=== PATIENT | female | born 1960 | race Caucasian/White ===

== ENCOUNTER 2022-04-05 18:35 | Inpatient (IN) ==
--- NOTE | 2022-04-05 19:10 | Emergency Department Note ---
Impression & Plan Retrosternal chest pain, Nausea, vomiting, and diarrhea, Heart palpitations, History of cardiac radiofrequency ablation ED Provider Note INFORMANT: Patient ED PROVIDER(S): Billy Chaudhry MD CHIEF COMPLAINT: Chest pain PLAN: Disposition: Admitted Condition: Good Outpatient prescription management: none Referral: None MEDICAL DECISION MAKING: Patient presents emerged department complaining of chest pain. She also had some abdominal pain. Work-up was initiated. ECG was unremarkable. The patient's chest x-ray was negative for acute process. Her D-dimer and troponin were negative. Patient did have elevation of her LFTs. This was concerning for a possible GI source. There was still concerns about cardiac issues given her family history and presentation. The patient was having more pain and was treated with Dilaudid and Zofran. She underwent CT imaging and there was findings consistent with her prior cholecystectomy but the patient did have a dilated common bile duct. She will need further management in the hospital. [facility] Case was discussed and diagnostics were reviewed. Evaluated patient in the ER and admitted her for further management After review of the information above and other included data, I feel the patient requires further management in the hospital. Triage Nursing notes reviewed and agree them. Vital Signs: reviewed and remarkable for no significant abnormalities Prior /Outside records reviewed: none Differential diagnosis: Cardiac ischemia, aortic dissection, pulmonary embolism, pneumothorax, pneumonia, pericarditis, myocarditis, esophageal rupture, GERD, cholecystitis, pancreatitis, musculoskeletal, as well as other pathologies. Diagnostics, as interpreted by me: EC Lead ECG performed and revealed Normal sinus rhythm at 73, normal Bennett, QRS normal. No elevation or depression. No PACs or PVCs Cardiac Monitoring: Cardiac monitoring ordered by me: The patient was placed on continuous cardiac monitoring and observed. It revealed a normal sinus rhythm at 68 beats per minute without ectopy or evidence of dysrhythmia. Medical decision rules: none Imaging studies: Chest x-ray. Findings: A chest x-ray was performed and revealed no pneumothorax, effusion, infiltrate, pulmonary edema, free air under the diaphragm, or wide mediastinum. Impression: No acute disease. CT imaging reveals common bile duct. Radiology noted that there was also a cystic lesion in the pelvis. I refer you to the EMR for further details. HPI: The patient is a 61year old female who presents to the Emergency Room with complaints of chest pain, retrosternal. This started this evening and is persistent and fluctuating. The patient also notes the following associated symptoms, nausea earlier, vomiting x3, and loose stool. Patient also noted some epigastric abdominal pain. Some of the pain does radiate to her back. She notes feeling palpitations and was concerned as she has a history of A. fib. She had chest pain similar to this with A. fib in the past. Nursing noted that when she came in her heart rate seem to fluctuate some and there was some concern that she had a brief run of atrial fibrillation on the monitor after ECG showed sinus rhythm. The patient has found no relieving factors. Current pain is rated as 4/10. Patient is a smoker. Notes strong family history of cardiac disease and cardiomyopathy. Patient's sister at the age of 47 from cardiac disease. Patient's other sister has a heart transplant. Patient also has a family history of MTHFR. Pt denies LOC, headache, fevers, chills, diaphoresis, visual changes, neck pain,breathing difficulties, melena, hematochezia, urinary symptoms, numbness, weakness, lymphadenopathy, rash, or other complaints. PAST MEDICAL HISTORY: See Below, atrial fibrillation PAST SURGICAL HISTORY: See Below, cardiac ablation SOCIAL HISTORY: See Below, smoker. . HOME MEDICATIONS: See Below ALLERGIES: See Below VITALS: See Below PHYSICAL EXAMINATION: GENERAL: Awake, alert, nontoxic-appearing, in no distress HENT: Normocephalic, atraumatic. Oropharynx unremarkable. EYES: Normal conjunctiva. Sclera non-icteric. NECK: Inspection normal. Non-tender. Supple. No nuchal rigidity. FROM. No masses. RESPIRATORY: Clear to auscultation. No wheezes. No rales. Normal respiratory effort. CARDIAC: Normal rate. Normal rhythm. No murmurs. No rubs. Extremities warm and well perfused. Pulses equal. No JVD. GI: Soft, non-distended. Mild epigastric tenderness to palpation. No rebound or guarding. No masses. RECTAL: Deferred. MUSCULOSKELETAL: Atraumatic. Chest examination reveals no tenderness. The back is symmetrical on inspection without obvious abnormality. There is no CVA tenderness to palpation. No joint edema. LOWER EXTREMITIES: Calves are equal size bilaterally and non-tender. No edema. No discoloration. NEURO: Normal sensorium. No sensory or motor deficits noted. SKIN: No rash or jaundice noted. Past Med/Surg History Social History Smoking Status: Former smoker Allergies Allergies Allergy/AdvReac Type Severity Reaction Status Date / Time lisinopril Allergy Mild . Verified 04/05/22 21:21 erythromycin base Allergy Unknown Verified 12/05/12 11:30 ketorolac Allergy Unknown Verified 12/05/12 11:30 Home Meds Home Medications Medication Instructions Recorded Confirmed albuterol sulfate 90 mcg/actuation 2 puff inhalation QID PRN 04/05/22 04/05/22 aerosol inhaler (ProAir HFA) Shortness Of Breath Or Wheezing alprazolam 0.25 mg tablet 0.25 mg PO QID PRN Anxiety 04/05/22 04/05/22 aspirin 81 mg tablet,delayed 81 mg PO DAILY 04/05/22 04/05/22 release diltiazem HCl 240 mg 240 mg PO DAILY 04/05/22 04/05/22 capsule,extended release 24 hr fluoxetine 40 mg capsule 40 mg PO DAILY 04/05/22 04/05/22 hydrochlorothiazide 25 mg tablet 25 mg PO DAILY 04/05/22 04/05/22 loratadine 10 mg tablet 10 mg PO DAILY 04/05/22 04/05/22 losartan 100 mg tablet 100 mg PO DAILY 04/05/22 04/05/22 magnesium oxide 400 mg PO DAILY 04/05/22 04/05/22 montelukast 10 mg tablet 10 mg PO QAM 04/05/22 04/05/22 multivitamin 1 tab PO DAILY 04/05/22 04/05/22 naproxen sodium 220 mg tablet 440 mg PO .Q4H/UD 04/05/22 04/05/22 (Aleve) omeprazole 20 mg capsule,delayed 20 mg PO BID 04/05/22 04/05/22 release potassium chloride 10 mEq 20 meq PO QAM 04/05/22 04/05/22 tablet,extended release (Klor-Con) rosuvastatin 20 mg tablet 20 mg PO DAILY 04/05/22 04/05/22 Results & Data (ED) Vital Signs Vital Signs - 24 hr 04/05/22 18:37 04/05/22 18:37 04/05/22 18:37 Temperature 37 C Temperature Source Oral Pulse Rate 70 98 H Pulse Rate [Finger] Pulse Rate from SpO2 Sensor Pulse Rhythm Regular Respiratory Rate 18 20 Respiratory Effort / Characteristics Non-Labored Respiratory Depth Normal Blood Pressure 128/70 Blood Pressure [Right Arm] Blood Pressure Mean 89 Blood Pressure Mean [Right Arm] Pulse Oximetry 98 98 98 Oxygen Delivery Method Room Air Room Air Room Air Sepsis Recent Fever Within 48 Hours No Sepsis New/Unexplained Change in Mental Status No Sepsis Action Taken by Nursing No Action Required 04/05/22 18:50 04/05/22 19:00 04/05/22 19:00 Temperature Temperature Source Pulse Rate 71 80 Pulse Rate [Finger] Pulse Rate from SpO2 Sensor 71 79 Pulse Rhythm Respiratory Rate 20 17 Respiratory Effort / Characteristics Respiratory Depth Blood Pressure 108/70 Blood Pressure [Right Arm] Blood Pressure Mean 82 Blood Pressure Mean [Right Arm] Pulse Oximetry 95 97 Oxygen Delivery Method Sepsis Recent Fever Within 48 Hours Sepsis New/Unexplained Change in Mental Status Sepsis Action Taken by Nursing 04/05/22 19:10 04/05/22 19:20 04/05/22 19:30 Temperature Temperature Source Pulse Rate 68 70 Pulse Rate [Finger] Pulse Rate from SpO2 Sensor 68 69 Pulse Rhythm Respiratory Rate 13 20 Respiratory Effort / Characteristics Respiratory Depth Blood Pressure 118/70 Blood Pressure [Right Arm] Blood Pressure Mean 86 Blood Pressure Mean [Right Arm] Pulse Oximetry 97 96 Oxygen Delivery Method Sepsis Recent Fever Within 48 Hours Sepsis New/Unexplained Change in Mental Status Sepsis Action Taken by Nursing 04/05/22 19:30 04/05/22 19:40 04/05/22 19:58 Temperature Temperature Source Pulse Rate 68 66 Pulse Rate [Finger] Pulse Rate from SpO2 Sensor 69 66 Pulse Rhythm Respiratory Rate 14 17 Respiratory Effort / Characteristics Respiratory Depth Blood Pressure 107/59 L Blood Pressure [Right Arm] Blood Pressure Mean 75 Blood Pressure Mean [Right Arm] Pulse Oximetry 97 97 Oxygen Delivery Method Sepsis Recent Fever Within 48 Hours Sepsis New/Unexplained Change in Mental Status Sepsis Action Taken by Nursing 04/05/22 19:58 04/05/22 20:00 04/05/22 20:00 Temperature Temperature Source Pulse Rate 67 65 Pulse Rate [Finger] Pulse Rate from SpO2 Sensor Pulse Rhythm Respiratory Rate 12 10 L Respiratory Effort / Characteristics Respiratory Depth Blood Pressure 99/58 L Blood Pressure [Right Arm] Blood Pressure Mean 71 Blood Pressure Mean [Right Arm] Pulse Oximetry Oxygen Delivery Method Sepsis Recent Fever Within 48 Hours Sepsis New/Unexplained Change in Mental Status Sepsis Action Taken by Nursing 04/05/22 20:10 04/05/22 20:20 04/05/22 20:47 Temperature Temperature Source Pulse Rate 64 69 76 Pulse Rate [Finger] Pulse Rate from SpO2 Sensor 65 68 Pulse Rhythm Respiratory Rate 15 12 20 Respiratory Effort / Characteristics Respiratory Depth Blood Pressure Blood Pressure [Right Arm] Blood Pressure Mean Blood Pressure Mean [Right Arm] Pulse Oximetry 95 95 Oxygen Delivery Method Sepsis Recent Fever Within 48 Hours Sepsis New/Unexplained Change in Mental Status Sepsis Action Taken by Nursing 04/05/22 20:50 04/05/22 21:02 04/05/22 21:02 Temperature Temperature Source Pulse Rate 70 67 Pulse Rate [Finger] Pulse Rate from SpO2 Sensor 71 68 Pulse Rhythm Respiratory Rate 14 17 Respiratory Effort / Characteristics Respiratory Depth Blood Pressure 120/68 Blood Pressure [Right Arm] Blood Pressure Mean 85 Blood Pressure Mean [Right Arm] Pulse Oximetry 97 96 Oxygen Delivery Method Sepsis Recent Fever Within 48 Hours Sepsis New/Unexplained Change in Mental Status Sepsis Action Taken by Nursing 04/05/22 21:10 04/05/22 21:20 04/05/22 22:00 Temperature Temperature Source Pulse Rate 74 68 Pulse Rate [Finger] 84 Pulse Rate from SpO2 Sensor 74 69 Pulse Rhythm Respiratory Rate 16 14 18 Respiratory Effort / Characteristics Respiratory Depth Blood Pressure Blood Pressure [Right Arm] 104/72 Blood Pressure Mean Blood Pressure Mean [Right Arm] 82 Pulse Oximetry 95 97 98 Oxygen Delivery Method Sepsis Recent Fever Within 48 Hours Sepsis New/Unexplained Change in Mental Status Sepsis Action Taken by Nursing 04/05/22 23:00 04/05/22 23:30 04/06/22 00:00 Temperature Temperature Source Pulse Rate 69 66 66 Pulse Rate [Finger] Pulse Rate from SpO2 Sensor Pulse Rhythm Respiratory Rate 17 21 13 Respiratory Effort / Characteristics Respiratory Depth Blood Pressure 122/67 111/67 119/67 Blood Pressure [Right Arm] Blood Pressure Mean 85 81 84 Blood Pressure Mean [Right Arm] Pulse Oximetry 95 95 91 Oxygen Delivery Method Room Air Room Air Room Air Sepsis Recent Fever Within 48 Hours Sepsis New/Unexplained Change in Mental Status Sepsis Action Taken by Nursing 04/06/22 00:30 Temperature Temperature Source Pulse Rate 68 Pulse Rate [Finger] Pulse Rate from SpO2 Sensor Pulse Rhythm Respiratory Rate 14 Respiratory Effort / Characteristics Respiratory Depth Blood Pressure 121/81 Blood Pressure [Right Arm] Blood Pressure Mean 94 Blood Pressure Mean [Right Arm] Pulse Oximetry 92 Oxygen Delivery Method Room Air Sepsis Recent Fever Within 48 Hours Sepsis New/Unexplained Change in Mental Status Sepsis Action Taken by Nursing Laboratory Data 04/05/22 18:56 04/05/22 18:56 Lab Results 04/05/22 04/05/22 04/05/22 Range/Units 18:56 18:56 18:56 WBC 9.27 (4.8-10.8) K/ul RBC 3.81 L (3.93-5.22) M/uL Hgb 13.5 (12.0-16.0) g/dl Hct 38.2 (34.1-44.9) % MCV 100.3 H (80.0-100.0) fL MCH 35.4 H (25.0-34.0) pg MCHC 35.3 (32.0-36.0) g/dL RDW Std Deviation 42.5 (36.4-46.3) fL RDW Coeff of Tristan 11.6 (11.5-14.5) % Plt Count 310 (130-400) K/uL MPV 9.8 (9.4-12.3) fL Immature Gran % (Auto) 0.3 % Neut % (Auto) 58.7 % Lymph % (Auto) 29.3 % Castro % (Auto) 9.9 % Eos % (Auto) 1.4 % Baso % (Auto) 0.4 % Neut # (Auto) 5.43 (1.4-6.5) K/uL Lymph # (Auto) 2.72 (1.2-3.4) K/uL Castro # (Auto) 0.92 H (0.24-0.82) K/uL Eos # (Auto) 0.13 (0-0.50) K/uL Baso # (Auto) 0.04 (0-0.2) K/uL Immature Gran # (Auto) 0.03 H (0.00-0.02) K/uL D-Dimer 430 (0-500) ug/L FEU Sodium 137 (136-145) mmol/L Potassium 3.3 L (3.5-5.1) mmol/L Chloride 99 (98-107) mmol/L Carbon Dioxide 24 (21-32) mmol/L Anion Gap 14 H (3-11) BUN 13 (6-23) mg/dl Creatinine 0.94 (0.6-1.2) mg/dl Est Cr Clr Drug Dosing 62.1 ml/min Est GFR ( Amer) 76.4 ml/min Est GFR (Non-Af Amer) 65.9 ml/min BUN/Creatinine Ratio 13.8 (10-20) Glucose 104 H (70-99(Fasting)) mg/dl Calcium 9.6 (8.5-10.1) mg/dl Total Bilirubin 0.6 (0.2-1.0) mg/dl AST 145 H (13-39) U/L ALT 54 H (7-52) U/L Alkaline Phosphatase 136 H (34-104) U/L Troponin I High Sens 3.6 (0-14) pg/ml Total Protein 7.2 (6.0-8.3) gm/dl Albumin 4.0 (3.4-5.0) gm/dl Globulin 3.2 (2.5-4.0) gm/dl Albumin/Globulin Ratio 1.3 (0.9-2) Lipase 195 H (11-82) U/L SARS-CoV-2 (PCR) (Negative) Influenza Type A (PCR) (Neg) Influenza Type B (PCR) (Neg) RSV (RT-PCR) (Neg) 04/05/22 Range/Units 19:05 WBC (4.8-10.8) K/ul RBC (3.93-5.22) M/uL Hgb (12.0-16.0) g/dl Hct (34.1-44.9) % MCV (80.0-100.0) fL MCH (25.0-34.0) pg MCHC (32.0-36.0) g/dL RDW Std Deviation (36.4-46.3) fL RDW Coeff of Tristan (11.5-14.5) % Plt Count (130-400) K/uL MPV (9.4-12.3) fL Immature Gran % (Auto) % Neut % (Auto) % Lymph % (Auto) % Castro % (Auto) % Eos % (Auto) % Baso % (Auto) % Neut # (Auto) (1.4-6.5) K/uL Lymph # (Auto) (1.2-3.4) K/uL Castro # (Auto) (0.24-0.82) K/uL Eos # (Auto) (0-0.50) K/uL Baso # (Auto) (0-0.2) K/uL Immature Gran # (Auto) (0.00-0.02) K/uL D-Dimer (0-500) ug/L FEU Sodium (136-145) mmol/L Potassium (3.5-5.1) mmol/L Chloride (98-107) mmol/L Carbon Dioxide (21-32) mmol/L Anion Gap (3-11) BUN (6-23) mg/dl Creatinine (0.6-1.2) mg/dl Est Cr Clr Drug Dosing ml/min Est GFR ( Amer) ml/min Est GFR (Non-Af Amer) ml/min BUN/Creatinine Ratio (10-20) Glucose (70-99(Fasting)) mg/dl Calcium (8.5-10.1) mg/dl Total Bilirubin (0.2-1.0) mg/dl AST (13-39) U/L ALT (7-52) U/L Alkaline Phosphatase (34-104) U/L Troponin I High Sens (0-14) pg/ml Total Protein (6.0-8.3) gm/dl Albumin (3.4-5.0) gm/dl Globulin (2.5-4.0) gm/dl Albumin/Globulin Ratio (0.9-2) Lipase (11-82) U/L SARS-CoV-2 (PCR) NEGATIVE (Negative) Influenza Type A (PCR) Negative (Neg) Influenza Type B (PCR) Negative (Neg) RSV (RT-PCR) Negative (Neg) Administered Medications Hydromorphone HCl (Hydromorphone Inj 0.5 Mg/0.5 Ml Syr) 0.5 mg IV Q15M PRN PRN Reason: Pain Stop: 04/19/22 20:17 Last Admin: 04/06/22 00:30 Dose: 0.5 mg Documented By: Admin: 04/05/22 21:04 Dose: 0.5 mg Documented By: ROMELIA Lactated Ringer's (Lr) 1,000 mls @ 200 mls/hr IV .Q5H STA Stop: 04/06/22 04:26 Last Admin: 04/06/22 00:23 Dose: 200 mls/hr Documented By: LUDWIG Oxycodone HCl (Oxycodone Hcl Ir 5 Mg Tab (Immediate Release)) 5 mg PO Q4H PRN PRN Reason: Pain Stop: 04/19/22 20:44 Last Admin: 04/05/22 21:04 Dose: 5 mg Documented By: ROMELIA Discontinued Medications Lactated Ringer's (Lr) 1,000 mls @ 500 mls/hr IV .Q2H ONE Stop: 04/05/22 22:44 Last Infusion: 04/05/22 23:04 Dose: 0 mls/hr Documented By: Admin: 04/05/22 21:04 Dose: 500 mls/hr Documented By: ROMELIA Thiamine HCl 100 mg/ Syringe 10 mls @ 2 mls/min IV NOW STA Stop: 04/05/22 23:56 Last Admin: 04/06/22 00:19 Dose: 2 mls/min Documented By: LUDWIG Ioversol (Optiray 350 100ml) 79 ml IV ONCE ONE Stop: 04/05/22 20:41 Last Admin: 04/05/22 20:41 Dose: 79 ml Documented By: KUN Ondansetron HCl (Ondansetron Inj 2 Mg/Ml 2 Ml Vial) 4 mg IV NOW STA Stop: 04/05/22 20:19 Last Admin: 04/05/22 21:04 Dose: 4 mg Documented By: ROMELIA Potassium Chloride (Potassium Chloride Crtab 20 Meq Tabcr) 20 meq PO NOW STA Stop: 04/05/22 20:46 Last Admin: 04/05/22 21:04 Dose: 20 meq Documented By: ROMELIA Imaging Data Radiologist's Impression: Chest X-Ray 04/05/22 18:37 XR chest 1V portable CLINICAL HISTORY: Chest pain, nonspecific COMPARISON STUDY: Chest CT April 17, 2008 and chest radiograph December 13, 2013. FINDINGS: Lung volumes are normal. Lungs are clear. Linear bibasilar opacities represent atelectasis. There is no pneumothorax or pleural effusion. Cardiac size is normal. Mediastinal contours are normal. There is no evidence for pulmonary edema. IMPRESSION: No acute cardiopulmonary findings. ACT 112: Negative or not required by law. Electronically signed by: Shar Mace M.D. 04/05/2022 7:54 PM Abdomen/Pelvis CT 04/05/22 20:18 CT OF THE ABDOMEN AND PELVIS WITH CONTRAST CLINICAL HISTORY: Upper abdominal pain, elevated LFTs, prior cholecystectomy. COMPARISON STUDY: CT of the abdomen and pelvis May 01, 2012. TECHNIQUE: Following IV administration of 79 mL of Optiray, axial images of the abdomen and pelvis were obtained from the lung bases to the proximal femurs. Images were reviewed in the axial, sagittal, and coronal planes. IV contrast was administered without complication. Automated exposure control was utilized for the study. A dose lowering technique was utilized adhering to the principles of ALARA. CT DOSE: 627.31 mGy.cm FINDINGS: A left breast nodule was present on prior CT. No pneumatosis, free air or portal venous gas is present. Mild biliary ductal dilatation is noted. This has minimally increased since prior CT. There are no hepatic lesions. There is no pancreatic ductal dilatation. There are several splenules. Spleen, adrenal glands and pancreas are unremarkable. There is no hydronephrosis. There is no evidence for a bowel obstruction. Colonic diverticulosis is noted without evide nce for acute diverticulitis. Right colon is fluid-filled. The appendix is normal. There is an 8.2 x 5.9 cm cystic lesion within the right adnexa, likely arising from the right ovary. This contains a septation with calcifications. The wall may be slightly thickened with slight mural nodularity. Mass effect upon the bladder. There is no free fluid. No lymphadenopathy is present. Major vasculature is patent. IMPRESSION: 1. Mild biliary ductal dilatation. This is likely related to cholecystectomy however correlation for function tests is recommended. 2. 8.2 x 5.9 cm right adnexal cystic lesion which contains a septation and possible slight mural nodularity. This likely arises from the right ovary. Differential considerations include benign and malignant etiologies. Nonemergent pelvic ultrasound and gynecologic consultation are recommended. 3. Sigmoid diverticulosis. No evidence for acute diverticulitis. ACT 112: Negative or not required by law. Electronically signed by: Shar Mace M.D. 04/05/2022 9:13 PM Discharge Plan Visit Data Chief Complaint: Chest Pain ED Provider: Billy Chaudhry Discharge Problem: Retrosternal chest pain, Nausea, vomiting, and diarrhea, Heart palpitations, History of cardiac radiofrequency ablation Forms Stand Alone Forms: [facility] [employer] Prescriptions Prescriptions: No Action diltiazem HCl 240 mg capsule,extended release 24hr 240 mg PO DAILY fluoxetine 40 mg capsule 40 mg PO DAILY hydrochlorothiazide 25 mg tablet 25 mg PO DAILY losartan 100 mg tablet 100 mg PO DAILY rosuvastatin 20 mg tablet 20 mg PO DAILY montelukast 10 mg Tablet 10 mg PO QAM alprazolam 0.25 mg Tablet 0.25 mg PO QID PRN (Reason: Anxiety) potassium chloride [Klor-Con 10] 10 mEq Tablet Extended Release 20 meq PO QAM omeprazole 20 mg Capsule,Delayed Release(Dr/Ec) 20 mg PO BID loratadine 10 mg Tablet 10 mg PO DAILY magnesium oxide 400 mg magnesium Tablet 400 mg PO DAILY albuterol sulfate [ProAir HFA] 90 mcg/actuation Hfa Aerosol Inhaler 2 puff INHALATION QID PRN (Reason: Shortness Of Breath Or Wheezing) aspirin [Aspir-Low] 81 mg Tablet,Delayed Release (Dr/Ec) 81 mg PO DAILY naproxen sodium [Aleve] 220 mg Tablet 440 mg PO .Q4H/UD Rx Instructions: TWO TABS EVERY 4 HOURS FIRST 2-3 DAYS OF MENSES multivitamin Tablet 1 tab PO DAILY Referrals Referrals: PCP,NO [Physician] -
[2022-04-05 19:13] LABS: Basophils # (auto) 0.04 K/uL (0-0.2); Basophils % (auto) 0.4 %; Eosinophils # (auto) 0.13 K/uL (0-0.50); Eosinophils % (auto) 1.4 %; Hematocrit (blood only) 38.2 % (34.1-44.9); Hemoglobin 13.5 g/dl (12.0-16.0); Immature Granulocytes # (auto) 0.03 K/uL (0.00-0.02); Immature Granulocytes % (auto) 0.3 %; Lymphocytes # (auto) 2.72 K/uL (1.2-3.4); Lymphocytes % (auto) 29.3 %; Mean Corpuscular Hemoglobin 35.4 pg (25.0-34.0); Mean Corpuscular Hgb Conc 35.3 g/dL (32.0-36.0); Mean Corpuscular Volume 100.3 fL (80.0-100.0); Mean Platelet Volume 9.8 fL (9.4-12.3); Monocytes # (auto) 0.92 K/uL (0.24-0.82); Monocytes % (auto) 9.9 %; Neutrophils # (auto) 5.43 K/uL (1.4-6.5); Neutrophils % (auto) 58.7 %; Platelet Count 310 K/uL (130-400); RDW Coefficient of Variation 11.6 % (11.5-14.5); RDW Standard Deviation 42.5 fL (36.4-46.3); Red Blood Count 3.81 M/uL (3.93-5.22); White Blood Count 9.27 K/ul (4.8-10.8)
[2022-04-05 19:36] LABS: Albumin Globulin Ratio 1.3 (0.9-2); BUN Creatinine Ratio 13.8 (10-20); Bilirubin,Total 0.6 mg/dl (0.2-1.0); Calcium 9.6 mg/dl (8.5-10.1); Creatinine Clr Calc Pharmacy 62.1 ml/min; Est GFR (African American) 76.4 ml/min; Est GFR (Non-African American) 65.9 ml/min; Globulin 3.2 gm/dl (2.5-4.0); Potassium 3.3 mmol/L (3.5-5.1); Total Protein 7.2 gm/dl (6.0-8.3)
[2022-04-05 19:44] LABS: D Dimer 430 ug/L FEU (0-500)
[2022-04-05 19:45] LABS: Troponin I High Sensitivity 3.6 pg/ml (0-14)
--- NOTE | 2022-04-05 19:56 | XRay Report ---
XR chest 1V portable CLINICAL HISTORY: Chest pain, nonspecific COMPARISON STUDY: Chest CT April 17, 2008 and chest radiograph December 13, 2013. FINDINGS: Lung volumes are normal. Lungs are clear. Linear bibasilar opacities represent atelectasis. There is no pneumothorax or pleural effusion. Cardiac size is normal. Mediastinal contours are annika l. There is no evidence for pulmonary edema. IMPRESSION: No acute cardiopulmonary findings. ACT 112: Negative or not required by law. Electronically signed by: Shar Mace M.D. 04/05/2022 7:54 PM
[2022-04-05] MEDS ORDERED: ONDANSETRON INJ 2 MG/ML 2 ML VIAL IV STA (20:18)
[2022-04-05 20:29] LABS: Influenza A virus by PCR Negative (Neg); Influenza B virus by PCR Negative (Neg); RSV by PCR Negative (Neg); SARS CoV2 RNA(COVID-19) Ceph NEGATIVE (Negative)
[2022-04-05] MEDS ORDERED: OPTIRAY 350 100ml IV ONE (20:40)
[2022-04-05] MEDS ORDERED: LACTATED RINGER'S 1,000 ML IV ONE (20:45)
[2022-04-05] MEDS ORDERED: POTASSIUM CHLORIDE CRTAB 20 MEQ TABCR PO STA (20:45)
[2022-04-05] MEDS: oxyCODONE HCL IR 5 MG TAB (IMMEDIATE RELEASE) PO PRN (21:04)
[2022-04-05] MEDS: HYDROmorphone INJ 0.5 MG/0.5 ML SYR IV PRN (21:04)
--- NOTE | 2022-04-05 21:15 | CT Scan Report ---
CT OF THE ABDOMEN AND PELVIS WITH CONTRAST CLINICAL HISTORY: Upper abdominal pain, elevated LFTs, prior cholecystectomy. COMPARISON STUDY: CT of the abdomen and pelvis May 01, 2012. TECHNIQUE: Following IV administration of 79 mL of Optiray, axial images of the abdomen and pelvis we re obtained from the lung bases to the proximal femurs. Images were reviewed in the axial, sagittal, and coronal planes. IV contrast was administered without complication. Automated exposure control wa s utilized for the study. A dose lowering technique was utilized adhering to the principles of ALARA . CT DOSE: 627.31 mGy.cm FINDINGS: A left breast nodule was present on prior CT. No pneumatosis, free air or portal venous gas is present. Mild biliary ductal dilatation is noted. This has minimally increased since prior CT. Th ere are no hepatic lesions. There is no pancreatic ductal dilatation. There are several splenules. Sp kendall, adrenal glands and pancreas are unremarkable. There is no hydronephrosis. There is no evidence for a bowel obstruction. Colonic diverticulosis is noted without evidence for acute diverticulitis. R ight colon is fluid-filled. The appendix is normal. There is an 8.2 x 5.9 cm cystic lesion within the right adnexa, likely arising from the right ovary. This contains a septation with calcifications. Th e wall may be slightly thickened with slight mural nodularity. Mass effect upon the bladder. There is no free fluid. No lymphadenopathy is present. Major vasculature is patent. IMPRESSION: 1. Mild biliary ductal dilatation. This is likely related to cholecystectomy however correlation for function tests is recommended. 2. 8.2 x 5.9 cm right adnexal cystic lesion which contains a septation and possible slight mural nodu larity. This likely arises from the right ovary. Differential considerations include benign and malig nant etiologies. Nonemergent pelvic ultrasound and gynecologic consultation are recommended. 3. Sigmoid diverticulosis. No evidence for acute diverticulitis. ACT 112: Negative or not required by law. Electronically signed by: Shar Mace M.D. 04/05/2022 9:13 PM
[2022-04-05] MEDS ORDERED: LACTATED RINGER'S 1,000 ML IV STA (23:27)
--- NOTE | 2022-04-05 23:47 | History & Physical Report ---
Date of Service April 05, 2022 Assessment & Plan (1) Acute pancreatitis: Plan: Possibly alcohol induced Alcoholic hepatitis, good prognosis on [facility] DF with normal coags A. fib status post ablation, patient NSR hypertension, stable hx MTHFR mutation history cerebral aneurysm as per records, no recent outpatient cerebral angio bronchial asthma, stable Right adnexal mass, incidental finding on CT past tobacco abuse GMF Bowel rest, IVF GI consult Re: Pancreatitis DT precautions, SHAHZAD S if with signs of alcohol withdrawal Pelvic ultrasound, outpatient Latin American Studies Professor consult for adnexal mass DVT prophylaxis. Lovenox subcu Full code Text document was generated using [employer] voice recognition software. It may contain grammatical or spelling errors. Kindly contact undersigned for clarification of any documentation item in question. History of Present Illness Chief Complaint: Abdominal pain Primary Care Provider: Ranjan Howard MD History obtained from patient, family, and records. Medical history significant for A. fib status post ablation, hypertension, hx MTHFR mutation, history cerebral aneurysm as per records, bronchial asthma, history of gastroparesis, alcohol abuse, past tobacco abuse. Last confinement 2013 at the behavioral health unit for depression and suicidality. Patient experienced achy epigastric pain symptoms going to her chest with nausea, emesis, diarrhea symptoms. Somewhat heavy lunch today. Daily alcohol intake occasionally heavy as per patient. No prior episodes. No fever, no chills. Patient brought to the ER by . 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 Verified 04/05/22 21:21 erythromycin base Allergy Unknown Verified 12/05/12 11:30 ketorolac Allergy Unknown Verified 12/05/12 11:30 Home Medications Medication Instructions Recorded Confirmed Type albuterol sulfate 90 mcg/actuation 2 puff inhalation QID PRN 04/05/22 04/05/22 History aerosol inhaler (ProAir HFA) Shortness Of Breath Or Wheezing alprazolam 0.25 mg tablet 0.25 mg PO QID PRN Anxiety 04/05/22 04/05/22 History aspirin 81 mg tablet,delayed 81 mg PO DAILY 04/05/22 04/05/22 History release diltiazem HCl 240 mg 240 mg PO DAILY 04/05/22 04/05/22 History capsule,extended release 24 hr fluoxetine 40 mg capsule 40 mg PO DAILY 04/05/22 04/05/22 History hydrochlorothiazide 25 mg tablet 25 mg PO DAILY 04/05/22 04/05/22 History loratadine 10 mg tablet 10 mg PO DAILY 04/05/22 04/05/22 History losartan 100 mg tablet 100 mg PO DAILY 04/05/22 04/05/22 History magnesium oxide 400 mg PO DAILY 04/05/22 04/05/22 History montelukast 10 mg tablet 10 mg PO QAM 04/05/22 04/05/22 History multivitamin 1 tab PO DAILY 04/05/22 04/05/22 History naproxen sodium 220 mg tablet 440 mg PO .Q4H/UD 04/05/22 04/05/22 History (Aleve) omeprazole 20 mg capsule,delayed 20 mg PO BID 04/05/22 04/05/22 History release potassium chloride 10 mEq 20 meq PO QAM 04/05/22 04/05/22 History tablet,extended release (Klor-Con) rosuvastatin 20 mg tablet 20 mg PO DAILY 04/05/22 04/05/22 History Past Med/Surg History Social History Smoking Status: Former smoker Second Hand Exposure: No; Do You Dip or Chew Tobacco: No; Tobacco Cessation Education Requested by Patient: No Hx Alcohol Use: Yes Alcohol type: wine Hx Substance Use: No Preferred Language: Danish Communication Ability: Effective Chiropractic Neurologist Required: No Beliefs That Will Affect Care: None Current Living Situation: Spouse Other Information That Helps Us Care for You: Yes ("Bad sinus allergies, especially in the mornings") Feels Safe at Home: Yes Safety Concerns: Feels Safe At This Time Assistive Devices: Contacts and Glasses Review of Systems Review of Systems: As per HPI, all other systems reviewed and negative Physical Exam Physical Exam: GENERAL: Comfortable, pleasant, obese, no respiratory distress SKIN: Normal color, warm HEENT: [place] palpebral conjunctivae, no ptosis, dry buccal mucosa NECK : Supple, short neck, no tenderness CHEST : CTA, no tenderness HEART : RRR, no obvious murmurs ABDOMEN: Some distention, epigastric tenderness EXTREMITIES : Minimal LE swelling, no LE tenderness, no other conspicuous deformities noted NEUROLOGIC : Coherent, no facial asymmetry, no other gross focality Results & Data Results & Data ([facility]) Vital Signs (Past 12 Hours) Vital Signs Temp Pulse Pulse Resp BP BP Pulse Ox 04/05/22 22:00 84 18 104/72 98 04/05/22 21:20 68 14 97 04/05/22 21:10 74 16 95 04/05/22 21:02 67 17 96 04/05/22 21:02 120/68 04/05/22 20:50 70 14 97 04/05/22 20:47 76 20 04/05/22 20:20 69 12 95 04/05/22 20:10 64 15 95 04/05/22 20:00 65 10 L 04/05/22 20:00 99/58 L 04/05/22 19:58 67 12 04/05/22 19:58 107/59 L 04/05/22 19:40 66 17 97 04/05/22 19:30 68 14 97 04/05/22 19:30 118/70 04/05/22 19:20 70 20 96 04/05/22 19:10 68 13 97 04/05/22 19:00 80 17 97 04/05/22 19:00 108/70 04/05/22 18:50 71 20 95 04/05/22 18:37 98 H 20 98 04/05/22 18:37 98 04/05/22 18:37 37 C 70 18 128/70 98 O2 Del Method 04/05/22 22:00 04/05/22 21:20 04/05/22 21:10 04/05/22 21:02 04/05/22 21:02 04/05/22 20:50 04/05/22 20:47 04/05/22 20:20 04/05/22 20:10 04/05/22 20:00 04/05/22 20:00 04/05/22 19:58 04/05/22 19:58 04/05/22 19:40 04/05/22 19:30 04/05/22 19:30 04/05/22 19:20 04/05/22 19:10 04/05/22 19:00 04/05/22 19:00 04/05/22 18:50 04/05/22 18:37 Room Air 04/05/22 18:37 Room Air 04/05/22 18:37 Room Air Laboratory Results Laboratory Results WBC 9.27 K/ul (4.8-10.8) 04/05/22 18:56 RBC 3.81 M/uL (3.93-5.22) L 04/05/22 18:56 Hgb 13.5 g/dl (12.0-16.0) 04/05/22 18:56 Hct 38.2 % (34.1-44.9) 04/05/22 18:56 MCV 100.3 fL (80.0-100.0) H 04/05/22 18:56 MCH 35.4 pg (25.0-34.0) H 04/05/22 18:56 MCHC 35.3 g/dL (32.0-36.0) 04/05/22 18:56 RDW Std Deviation 42.5 fL (36.4-46.3) 04/05/22 18:56 RDW Coeff of Tristan 11.6 % (11.5-14.5) 04/05/22 18:56 Plt Count 310 K/uL (130-400) 04/05/22 18:56 MPV 9.8 fL (9.4-12.3) 04/05/22 18:56 Immature Gran % (Auto) 0.3 % 04/05/22 18:56 Neut % (Auto) 58.7 % 04/05/22 18:56 Lymph % (Auto) 29.3 % 04/05/22 18:56 Ransom % (Auto) 9.9 % 04/05/22 18:56 Eos % (Auto) 1.4 % 04/05/22 18:56 Baso % (Auto) 0.4 % 04/05/22 18:56 Neut # (Auto) 5.43 K/uL (1.4-6.5) 04/05/22 18:56 Lymph # (Auto) 2.72 K/uL (1.2-3.4) 04/05/22 18:56 Ransom # (Auto) 0.92 K/uL (0.24-0.82) H 04/05/22 18:56 Eos # (Auto) 0.13 K/uL (0-0.50) 04/05/22 18:56 Baso # (Auto) 0.04 K/uL (0-0.2) 04/05/22 18:56 Immature Gran # (Auto) 0.03 K/uL (0.00-0.02) H 04/05/22 18:56 D-Dimer 430 ug/L FEU (0-500) 04/05/22 18:56 Sodium 137 mmol/L (136-145) 04/05/22 18:56 Potassium 3.3 mmol/L (3.5-5.1) L 04/05/22 18:56 Chloride 99 mmol/L (98-107) 04/05/22 18:56 Carbon Dioxide 24 mmol/L (21-32) 04/05/22 18:56 Anion Gap 14 (3-11) H 04/05/22 18:56 BUN 13 mg/dl (6-23) 04/05/22 18:56 Creatinine 0.94 mg/dl (0.6-1.2) 04/05/22 18:56 Est Cr Clr Drug Dosing 62.1 ml/min 04/05/22 18:56 Est GFR ( Amer) 76.4 ml/min 04/05/22 18:56 Est GFR (Non-Af Amer) 65.9 ml/min 04/05/22 18:56 BUN/Creatinine Ratio 13.8 (10-20) 04/05/22 18:56 Glucose 104 mg/dl (70-99(Fasting)) H 04/05/22 18:56 Calcium 9.6 mg/dl (8.5-10.1) 04/05/22 18:56 Total Bilirubin 0.6 mg/dl (0.2-1.0) 04/05/22 18:56 AST 145 U/L (13-39) H 04/05/22 18:56 ALT 54 U/L (7-52) H 04/05/22 18:56 Alkaline Phosphatase 136 U/L (34-104) H 04/05/22 18:56 Troponin I High Sens 3.6 pg/ml (0-14) 04/05/22 18:56 Total Protein 7.2 gm/dl (6.0-8.3) 04/05/22 18:56 Albumin 4.0 gm/dl (3.4-5.0) 04/05/22 18:56 Globulin 3.2 gm/dl (2.5-4.0) 04/05/22 18:56 Albumin/Globulin Ratio 1.3 (0.9-2) 04/05/22 18:56 Lipase 195 U/L (11-82) H 04/05/22 18:56 SARS-CoV-2 (PCR) NEGATIVE (Negative) 04/05/22 19:05 Influenza Type A (PCR) Negative (Neg) 04/05/22 19:05 Influenza Type B (PCR) Negative (Neg) 04/05/22 19:05 RSV (RT-PCR) Negative (Neg) 04/05/22 19:05 Impressions Chest X-Ray 04/05/22 18:37 XR chest 1V portable CLINICAL HISTORY: Chest pain, nonspecific COMPARISON STUDY: Chest CT April 17, 2008 and chest radiograph December 13, 2013. FINDINGS: Lung volumes are normal. Lungs are clear. Linear bibasilar opacities represent atelectasis. There is no pneumothorax or pleural effusion. Cardiac size is normal. Mediastinal contours are normal. There is no evidence for pulmonary edema. IMPRESSION: No acute cardiopulmonary findings. ACT 112: Negative or not required by law. Electronically signed by: Shar Mace M.D. 04/05/2022 7:54 PM Abdomen/Pelvis CT 04/05/22 20:18 CT OF THE ABDOMEN AND PELVIS WITH CONTRAST CLINICAL HISTORY: Upper abdominal pain, elevated LFTs, prior cholecystectomy. COMPARISON STUDY: CT of the abdomen and pelvis May 01, 2012. TECHNIQUE: Following IV administration of 79 mL of Optiray, axial images of the abdomen and pelvis were obtained from the lung bases to the proximal femurs. Images were reviewed in the axial, sagittal, and coronal planes. IV contrast was administered without complication. Automated exposure control was utilized for the study. A dose lowering technique was utilized adhering to the principles of ALARA. CT DOSE: 627.31 mGy.cm FINDINGS: A left breast nodule was present on prior CT. No pneumatosis, free air or portal venous gas is present. Mild biliary ductal dilatation is noted. This has minimally increased since prior CT. There are no hepatic lesions. There is no pancreatic ductal dilatation. There are several splenules. Spleen, adrenal glands and pancreas are unremarkable. There is no hydronephrosis. There is no evidence for a bowel obstruction. Colonic diverticulosis is noted without evidence for acute diverticulitis. Right colon is fluid-filled. The appendix is normal. There is an 8.2 x 5.9 cm cystic lesion within the right adnexa, likely arising from the right ovary. This contains a septation with calcifications. The wall may be slightly thickened with slight mural nodularity. Mass effect upon the bladder. There is no free fluid. No lymphadenopathy is present. Major vasculature is patent. IMPRESSION: 1. Mild biliary ductal dilatation. This is likely related to cholecystectomy however correlation for function tests is recommended. 2. 8.2 x 5.9 cm right adnexal cystic lesion which contains a septation and possible slight mural nodularity. This likely arises from the right ovary. Differential considerations include benign and malignant etiologies. Nonemergent pelvic ultrasound and gynecologic consultation are recommended. 3. Sigmoid diverticulosis. No evidence for acute diverticulitis. ACT 112: Negative or not required by law. Electronically signed by: Shar Mace M.D. 04/05/2022 9:13 PM Diagnostic Findings EKG as per my interpretation : Rate 80, NSR, normal axis, no ischemia
[2022-04-05] MEDS ORDERED: THIAMINE HCL 100 MG in SYRINGE 9 ML IV STA (23:52)
[2022-04-06] MEDS: HYDROmorphone INJ 0.5 MG/0.5 ML SYR IV PRN (00:30)
[2022-04-06] MEDS ORDERED: ALPRAZolam 0.25 MG TABLET PO PRN (02:17)
[2022-04-06] MEDS ORDERED: PROMETHAZINE HCL 12.5 MG in SODIUM CHLORIDE 0.9% 50 ML IV PRN (02:17)
[2022-04-06 02:41] LABS: Prothrombin Time 10.7 Seconds (9.0-12.0)
[2022-04-06] MEDS: oxyCODONE HCL IR 5 MG TAB (IMMEDIATE RELEASE) PO PRN ×3 (03:16→20:26)
[2022-04-06] MEDS: LACTATED RINGER'S 1,000 ML IV SCH ×3 (07:22→20:28)
[2022-04-06 08:14] LABS: Basophils # (auto) 0.04 K/uL (0-0.2); Basophils % (auto) 0.7 %; Eosinophils # (auto) 0.09 K/uL (0-0.50); Eosinophils % (auto) 1.6 %; Hematocrit (blood only) 32.7 % (34.1-44.9); Hemoglobin 11.5 g/dl (12.0-16.0); Immature Granulocytes # (auto) 0.02 K/uL (0.00-0.02); Immature Granulocytes % (auto) 0.4 %; Lymphocytes # (auto) 1.52 K/uL (1.2-3.4); Mean Corpuscular Hemoglobin 35.5 pg (25.0-34.0); Mean Corpuscular Hgb Conc 35.2 g/dL (32.0-36.0); Mean Corpuscular Volume 100.9 fL (80.0-100.0); Mean Platelet Volume 9.6 fL (9.4-12.3); Monocytes % (auto) 8.9 %; Neutrophils # (auto) 3.47 K/uL (1.4-6.5); Neutrophils % (auto) 61.4 %; Platelet Count 223 K/uL (130-400); RDW Coefficient of Variation 11.7 % (11.5-14.5); RDW Standard Deviation 42.9 fL (36.4-46.3); Red Blood Count 3.24 M/uL (3.93-5.22); White Blood Count 5.64 K/ul (4.8-10.8)
[2022-04-06] MEDS: PANTOprazole 40 MG TAB PO SCH ×2 (08:17→20:28)
[2022-04-06] MEDS: ASPIRIN 81 MG ECTAB PO SCH (08:17)
[2022-04-06] MEDS: FLUoxetine HCL 20 MG CAP PO SCH (08:18)
[2022-04-06] MEDS: LORATADINE 10 MG TAB PO SCH (08:18)
[2022-04-06] MEDS: MULTIVITAMIN TAB PO SCH (08:18)
[2022-04-06] MEDS: FOLIC ACID 1 MG TAB PO SCH (08:18)
[2022-04-06] MEDS: MONTELUKAST SODIUM 10 MG TABLET PO SCH (08:18)
[2022-04-06] MEDS: ROSUVASTATIN CALCIUM 20 MG TAB PO SCH (08:18)
[2022-04-06] MEDS: dilTIAZem HCL 240 MG CAPCR PO SCH (08:18)
[2022-04-06] MEDS: LOSARTAN POTASSIUM 50 MG TAB PO SCH (08:18)
[2022-04-06] MEDS: ENOXAPARIN INJ 40 MG/0.4 ML SYR SQ SCH (08:20)
[2022-04-06] MEDS ORDERED: Flu Vaccine (Fluarix) 0.5mL SYR (Standard Dose) IM ONE (09:00)
[2022-04-06] MEDS ORDERED: NON-FORMULARY MEDICATION (Multivitamin Tablet) PO SCH (09:00)
--- NOTE | 2022-04-06 09:09 | Electrocardiogram Report ---
Test Reason : Blood Pressure : / mmHG Vent. Rate : 073 BPM Atrial Rate : 073 BPM P-R Int : 138 ms QRS Dur : 080 ms QT Int : 414 ms P-R-T Axes : 058 058 045 degrees QTc Int : 456 ms Normal sinus rhythm Normal ECG When compared with ECG of 13-DEC-2013 03:34, No significant change was found Confirmed by Javier Macdonald ([id number]) on 04/06/2022 9:09:15 AM Referred By: REFERRED SELF Confirmed By:Javier Macdonald
--- NOTE | 2022-04-06 09:38 | Ultrasound Report ---
ULTRASOUND OF THE PELVIS CLINICAL HISTORY: Adnexal mass. COMPARISON STUDY: Pelvic CT dated 04/05/2022 TECHNIQUE: Real-time, grayscale, and color flow sonography of the pelvis is performed both transabdom inally and endovaginally. Images are reviewed in the transverse and longitudinal planes. The endovagi nal examination was performed for better assessment of the adnexa. FINDINGS: Uterus: The uterus is normal in size and heterogeneous and echotexture, measuring 6.1 x 3.2 x 4.3 cm. Tiny nabothian cysts are incidentally noted in the cervix. Endometrium: The endometrium is heterogeneous, and the endometrial stripe measures up to 0.3 cm. Ovaries: The ovaries were not well visualized. Pelvis: There is trace free fluid in the cul-de-sac. There is an 8.0 x 5.1 x 5.9 cm complex septated cystic lesion in the right adnexa, likely related to the right ovary. The septations appear calcified . No soft tissue/nodular component is clearly seen. IMPRESSION: 1. There is an 8.0 cm complex septated cystic lesion in the right adnexa, likely related to the right ovary. This is pathologically indeterminate, and an ovarian neoplasm is not excluded. Gynecological surgical evaluation is advised. 2. Heterogeneous uterus. 3. Trace free fluid in the cul-de-sac is nonspecific. ACT 112: Negative or not required by law. Electronically signed by: Davie Simms M.D. 04/06/2022 9:35 AM
[2022-04-06 10:01] LABS: Albumin Globulin Ratio 1.3 (0.9-2); Albumin Level 3.4 gm/dl (3.4-5.0); BUN Creatinine Ratio 11.8 (10-20); Bilirubin,Total 0.5 mg/dl (0.2-1.0); Calcium 9.2 mg/dl (8.5-10.1); Creatinine Clr Calc Pharmacy 68.7 ml/min; Est GFR (African American) 86.3 ml/min; Est GFR (Non-African American) 74.5 ml/min; Globulin 2.6 gm/dl (2.5-4.0); Potassium 4.1 mmol/L (3.5-5.1)
[2022-04-06] MEDS: MoRPHine SULFATE 4 MG/ML 1 ML CARP\\VIAL IV PRN ×2 (10:28→17:59)
--- NOTE | 2022-04-06 12:46 | Gastrointestinal Consultation ---
Date of Consultation April 06, 2022 Assessment & Plan (1) Acute pancreatitis: Pt is a 61 yo female w upper abd pain, n/v, diarrhea (resolved) found to have elevated LFTs and lipase suspected to have acute pancreatitis. She is s/p cholecystectomy, CT w mild biliary ductal dilation. She drinks ETOH and suspect that most likely has ETOH induced pancreatitis. - IVF support w LR - May try CL diet later today if continues to feel well wo n/v; then advance slowly as tolerated to low fat diet - Obtain MRCP to r/o biliary obstruction - Trend LFTs - ETOH cessation advised - OP EUS in 4 to 6 week's time. She also is overdue for screening colonoscopy (hx of tubovillous adenomatous polyp), we will help arrange appt - R adnexa cyst -> f/u pelvis/transvag u/s result and recommend GRADER OPERATOR consult Supervising Physician Co-Signing Physician Notes I have personally seen and examined the patient with TYREL Buckner. Her note reflects my exam and findings. I agree with her impression and plan. I do not think she meets criteria for acute pancreatitis. Liver enzymes c/w ETOH hepatic steatosis. Await MRCP. Salbador Almaraz M.D. History of Present Illness Reason for Consultation: Pancreatitis Requesting Physician: Dr. Cristobal Zambrano Attending Physician: Dr. Salbador Almaraz History of Present Illness Patient is a 61 years old female with past medical histories of atrial fibrillation status post ablation, hypertension, history of MTHFR mutation, history of cerebral aneurysm, bronchial asthma, gastroparesis, tobacco and alcohol abuse is who presented to the ED yesterday with complaints of epigastric abdominal pain along with diarrhea x1. States that yesterday she had a heavy lunch, started having sharp epigastric pain later on in the day along with 1 episode of diarrhea for which she took Imodium. No longer having any BM since she took Imodium. Tried drinking Chardonnay at night for dinner and vomited. No other symptoms including fevers, chills, chest pain, shortness of breath. She traveled to [facility] for short trip, denies any sick contact, new medications including antibiotics otherwise. On evaluation, no signs of leukocytosis or significant anemia. Kidney function normal but LFTs are slightly elevated with normal bilirubin, elevated transaminases in the 100s, alkaline phosphatase 134. Lipase is 195. CT abd/pelvis w contrast showed mild biliary ductal dilatation. She is s/p cholecystectomy. There is sigmoid diverticulosis but no signs of acute diverticulitis. A 8.2 x 5.9 cm right adnexal cystic lesion which contains a septation and possible slight mural nodularity likely arising from R ovary is found. Transvaginal/pelvis US done this AM, pending results. Pt denies tobacco but admits to drinking >4 glasses of wine daily. No rec drug use EGD 2005 w sign of healed PUD, hiatal hernia Colonoscopy 2019 showed tubovillous adenoma polyp She denies any family history of GI malignancy or autoimmune pancreatitis. Omeprazole and losartan is considered in class Ib for possibly causing drug- induced pancreatitis Allergies Allergy/AdvReac Type Severity Reaction Status Date / Time lisinopril Allergy Mild . Verified 04/05/22 21:21 erythromycin base Allergy Unknown Verified 12/05/12 11:30 ketorolac Allergy Unknown Verified 12/05/12 11:30 Home Medications Medication Instructions Recorded Confirmed Type albuterol sulfate 90 mcg/actuation 2 puff inhalation QID PRN 04/05/22 04/05/22 History aerosol inhaler (ProAir HFA) Shortness Of Breath Or Wheezing alprazolam 0.25 mg tablet 0.25 mg PO QID PRN Anxiety 04/05/22 04/05/22 History aspirin 81 mg tablet,delayed 81 mg PO DAILY 04/05/22 04/05/22 History release diltiazem HCl 240 mg 240 mg PO DAILY 04/05/22 04/05/22 History capsule,extended release 24 hr fluoxetine 40 mg capsule 40 mg PO DAILY 04/05/22 04/05/22 History hydrochlorothiazide 25 mg tablet 25 mg PO DAILY 04/05/22 04/05/22 History loratadine 10 mg tablet 10 mg PO DAILY 04/05/22 04/05/22 History losartan 100 mg tablet 100 mg PO DAILY 04/05/22 04/05/22 History magnesium oxide 400 mg PO DAILY 04/05/22 04/05/22 History montelukast 10 mg tablet 10 mg PO QAM 04/05/22 04/05/22 History multivitamin 1 tab PO DAILY 04/05/22 04/05/22 History naproxen sodium 220 mg tablet 440 mg PO .Q4H/UD 04/05/22 04/05/22 History (Aleve) omeprazole 20 mg capsule,delayed 20 mg PO BID 04/05/22 04/05/22 History release potassium chloride 10 mEq 20 meq PO QAM 04/05/22 04/05/22 History tablet,extended release (Klor-Con) rosuvastatin 20 mg tablet 20 mg PO DAILY 04/05/22 04/05/22 History Patient History Social History Smoking Status: Former smoker Second Hand Exposure: No; Do You Dip or Chew Tobacco: No; Tobacco Cessation Education Requested by Patient: No Hx Alcohol Use: Yes Alcohol type: wine Hx Substance Use: No Preferred Language: Bruneian Communication Ability: Effective Professor In Family Studies Required: No Beliefs That Will Affect Care: None Current Living Situation: Spouse Other Information That Helps Us Care for You: Yes ("Bad sinus allergies, especially in the mornings") Feels Safe at Home: Yes Safety Concerns: Feels Safe At This Time Assistive Devices: None Review of Systems Review of Systems: All systems reviewed & are unremarkable except as noted in HPI & below Physical Exam Constitutional: WD/WN, vitals as above well groomed, cooperative and comfortable Eyes: PERRL, conjunctivae normal, anicteric sclerae ENMT: external ear and nose normal, oropharynx normal Respiratory: normal respiratory effort, lungs clear to auscultation Cardiovascular: RRR, no murmur, no edema Gastrointestinal (Abdomen): TTP across upper abd, soft, no guarding, BS hypoactive. Skin: no rashes, warm and dry no jaundice Neurologic: Motor/Sensory: no asterixis Psychiatric: A+Ox3, euthymic affect Lymphatic: no lymphedema Results & Data ([facility]) Vital Signs (Past 12 Hours) Vital Signs Temp Pulse Pulse Resp BP BP Pulse Ox 04/06/22 07:39 36.8 C 64 18 130/84 92 04/06/22 02:35 36.8 C 71 18 147/79 H 95 04/06/22 01:30 65 13 125/70 99 04/06/22 01:00 70 12 124/69 98 O2 Del Method 04/06/22 07:39 Room Air 04/06/22 02:35 Room Air 04/06/22 01:30 Room Air 04/06/22 01:00 Room Air
--- NOTE | 2022-04-06 16:14 | Hospitalist Progress Note ---
Date of Service April 06, 2022 Assessment & Plan (1) Acute pancreatitis: Plan 61-year-old lady with PMH of A. fib status post ablation, HTN, MTHFR mutation, cerebral aneurysm, bronchial asthma, gastroparesis, alcohol abuse, past tobacco abuse presented to the ED 04/05 with complaint of acute epigastric pain radiating to her back associated with nausea/vomiting/diarrhea symptoms. Of note, patient reports daily alcohol intake and occasionally heavy. She is being managed for the following: Likely Acute pancreatitis: Presents with epigastric pain radiating to back, lipase elevated, admitting CT abdomen pelvis reviewed. Possibly alcohol induced, history of cholecystectomy. Patient reports improving epigastric pain, continue n.p.o./pain management/IV fluid. GI on board, to clear diet if with pain improvement then ADAT. Obtain MRCP to rule out biliary obstruction. Alcohol cessation counseling done. Alcoholic steatosis: LFT mildly elevated, alcohol cessation encouraged, follow- up. Trending down. SHAHZAD S protocol if with signs of alcohol withdrawal. Right adnexal mass: 8.2 x 5.9 cm right adnexal cystic lesion noted in the CTAP with septation/possible mural nodularity. Pelvic ultrasound and transvaginal ultrasound with 8 cm complex septated cystic lesion in the right adnexa likely related to the right ovary. Gynecology consulted, await recommendation. Other chronic medical conditions: A. fib status post ablation, HTN, MTHFR mutation, cerebral aneurysm, bronchial asthma, past tobacco abuse --- resume home meds as able. DVT prophylaxis: Lovenox subcu Full code Plan of care discussed with patient and patient's at bedside. Admission and Anticipated Discharge Date Admission Date: April 05, 2022 Subjective Patient seen and examined patient as a follow-up of acute pancreatitis and right adnexal lesion. Patient was lying in bed, on room air, NAD, reports no new acute event overnight, is n.p.o. due to pancreatitis, reports better control of pain, currently 4/10 at bedside exam, is receiving pain medications as needed, reports feeling better, denies headache/fever/dizziness/sore throat/cough/chest pain/other review of symptoms. Physical Exam Physical Exam: GENERAL: Alert and oriented x3. NAD, on RA. Obese Class I HEENT: No pallor, no icterus. Pupils equal, round and reactive to light. Oral mucosa moist. NECK: No JVD, no neck masses. HEART: S1 and S2 heard. Regular rate and rhythm. No murmur, no gallop. RESPIRATORY SYSTEM: Normal AP diameter. No accessory muscle use. No wheezing, no crackles. ABDOMEN: Soft, bowel sounds present, Tender Epigastric, no distention. CENTRAL NERVOUS SYSTEM: No facial droop. Speech is clear. Obeys simple commands. Moves extremities. EXTREMITIES: No edema, no erythema seen. Results & Data Results & Data ([facility]) Vital Signs (Past 12 Hours) Vital Signs Temp Pulse Resp BP Pulse Ox O2 Del Method 04/06/22 15:44 94 Room Air 04/06/22 15:20 37.0 C 60 20 124/78 91 Room Air 04/06/22 07:39 36.8 C 64 18 130/84 92 Room Air
--- NOTE | 2022-04-06 18:26 | OB/GYN Consultation ---
Date of Consultation April 06, 2022 Assessment & Plan (1) Endometriosis: (2) Ovarian cystic mass: Ca-125 will need outpatient f/u with public service director and possible public service director oncology referral History of Present Illness Reason for Consultation: pelvic mass Requesting Physician: Dr. Zambrano Attending Physician: Cristobal Zambrano MD History of Present Illness 61 F [id number] who presents yesterday to ER at [facility] with generalized abdominal pain and found to have pancreatitis. Upon having a routine CT/pelvic ultrasound she was found to have a right sided complex mass in the pelvis probable ovarian complex cystic septated lesion that may be a neoplasm. She has a history of endometrial ablation with Dr. Roper the past. She states that she had multiple laparoscopies in the past for endometriosis. Allergies Allergy/AdvReac Type Severity Reaction Status Date / Time lisinopril Allergy Mild . Verified 04/05/22 21:21 erythromycin base Allergy Unknown Verified 12/05/12 11:30 ketorolac Allergy Unknown Verified 12/05/12 11:30 Home Medications Medication Instructions Recorded Confirmed Type albuterol sulfate 90 mcg/actuation 2 puff inhalation QID PRN 04/05/22 04/05/22 History aerosol inhaler (ProAir HFA) Shortness Of Breath Or Wheezing alprazolam 0.25 mg tablet 0.25 mg PO QID PRN Anxiety 04/05/22 04/05/22 History aspirin 81 mg tablet,delayed 81 mg PO DAILY 04/05/22 04/05/22 History release diltiazem HCl 240 mg 240 mg PO DAILY 04/05/22 04/05/22 History capsule,extended release 24 hr fluoxetine 40 mg capsule 40 mg PO DAILY 04/05/22 04/05/22 History hydrochlorothiazide 25 mg tablet 25 mg PO DAILY 04/05/22 04/05/22 History loratadine 10 mg tablet 10 mg PO DAILY 04/05/22 04/05/22 History losartan 100 mg tablet 100 mg PO DAILY 04/05/22 04/05/22 History magnesium oxide 400 mg PO DAILY 04/05/22 04/05/22 History montelukast 10 mg tablet 10 mg PO QAM 04/05/22 04/05/22 History multivitamin 1 tab PO DAILY 04/05/22 04/05/22 History naproxen sodium 220 mg tablet 440 mg PO .Q4H/UD 04/05/22 04/05/22 History (Aleve) omeprazole 20 mg capsule,delayed 20 mg PO BID 04/05/22 04/05/22 History release potassium chloride 10 mEq 20 meq PO QAM 04/05/22 04/05/22 History tablet,extended release (Klor-Con) rosuvastatin 20 mg tablet 20 mg PO DAILY 04/05/22 04/05/22 History Patient History Social History Smoking Status: Former smoker Second Hand Exposure: No; Do You Dip or Chew Tobacco: No; Tobacco Cessation Education Requested by Patient: No Hx Alcohol Use: Yes Alcohol type: wine Hx Substance Use: No Preferred Language: Malay Communication Ability: Effective 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 Musculoskeletal: Extremities: extremities normal to inspection Neurologic: patellar DTR's 2+ bilat, sensation intact Psychiatric: A+Ox3, euthymic affect Results & Data ([facility]) Vital Signs (Past 12 Hours) Vital Signs Temp Pulse Resp BP Pulse Ox O2 Del Method 04/06/22 15:44 94 Room Air 04/06/22 15:20 37.0 C 60 20 124/78 91 Room Air 04/06/22 07:39 36.8 C 64 18 130/84 92 Room Air Laboratory Results Laboratory Results - last 72 hr 04/05/22 04/05/22 04/05/22 18:56 18:56 18:56 WBC 9.27 RBC 3.81 L Hgb 13.5 Hct 38.2 MCV 100.3 H MCH 35.4 H MCHC 35.3 RDW Std Deviation 42.5 RDW Coeff of Tristan 11.6 Plt Count 310 MPV 9.8 Immature Gran % (Auto) 0.3 Neut % (Auto) 58.7 Lymph % (Auto) 29.3 Preble % (Auto) 9.9 Eos % (Auto) 1.4 Baso % (Auto) 0.4 Neut # (Auto) 5.43 Lymph # (Auto) 2.72 Preble # (Auto) 0.92 H Eos # (Auto) 0.13 Baso # (Auto) 0.04 Immature Gran # (Auto) 0.03 H PT INR D-Dimer 430 Sodium 137 Potassium 3.3 L Chloride 99 Carbon Dioxide 24 Anion Gap 14 H BUN 13 Creatinine 0.94 Est Cr Clr Drug Dosing 62.1 Est GFR ( Amer) 76.4 Est GFR (Non-Af Amer) 65.9 BUN/Creatinine Ratio 13.8 Glucose 104 H Calcium 9.6 Total Bilirubin 0.6 AST 145 H ALT 54 H Alkaline Phosphatase 136 H Troponin I High Sens 3.6 Total Protein 7.2 Albumin 4.0 Globulin 3.2 Albumin/Globulin Ratio 1.3 Lipase 195 H Ethyl Alcohol mg/dL SARS-CoV-2 (PCR) Influenza Type A (PCR) Influenza Type B (PCR) RSV (RT-PCR) 04/05/22 04/05/22 04/06/22 18:56 19:05 07:48 WBC RBC Hgb Hct MCV MCH MCHC RDW Std Deviation RDW Coeff of Tristan Plt Count MPV Immature Gran % (Auto) Neut % (Auto) Lymph % (Auto) Preble % (Auto) Eos % (Auto) Baso % (Auto) Neut # (Auto) Lymph # (Auto) Preble # (Auto) Eos # (Auto) Baso # (Auto) Immature Gran # (Auto) PT 10.7 INR 1.0 D-Dimer Sodium Potassium Chloride Carbon Dioxide Anion Gap BUN Creatinine Est Cr Clr Drug Dosing Est GFR ( Amer) Est GFR (Non-Af Amer) BUN/Creatinine Ratio Glucose Calcium Total Bilirubin AST ALT Alkaline Phosphatase Troponin I High Sens Total Protein Albumin Globulin Albumin/Globulin Ratio Lipase Ethyl Alcohol mg/dL < 10.0 SARS-CoV-2 (PCR) NEGATIVE Influenza Type A (PCR) Negative Influenza Type B (PCR) Negative RSV (RT-PCR) Negative 04/06/22 04/06/22 07:48 07:48 WBC 5.64 RBC 3.24 L Hgb 11.5 L Hct 32.7 L MCV 100.9 H MCH 35.5 H MCHC 35.2 RDW Std Deviation 42.9 RDW Coeff of Tristan 11.7 Plt Count 223 MPV 9.6 Immature Gran % (Auto) 0.4 Neut % (Auto) 61.4 Lymph % (Auto) 27.0 Preble % (Auto) 8.9 Eos % (Auto) 1.6 Baso % (Auto) 0.7 Neut # (Auto) 3.47 Lymph # (Auto) 1.52 Preble # (Auto) 0.50 Eos # (Auto) 0.09 Baso # (Auto) 0.04 Immature Gran # (Auto) 0.02 PT INR D-Dimer Sodium 139 Potassium 4.1 D Chloride 103 Carbon Dioxide 32 Anion Gap 4 BUN 10 Creatinine 0.85 Est Cr Clr Drug Dosing 68.7 Est GFR ( Amer) 86.3 Est GFR (Non-Af Amer) 74.5 BUN/Creatinine Ratio 11.8 Glucose 87 Calcium 9.2 Total Bilirubin 0.5 AST 66 H ALT 55 H Alkaline Phosphatase 134 H Troponin I High Sens Total Protein 6.0 Albumin 3.4 Globulin 2.6 Albumin/Globulin Ratio 1.3 Lipase Ethyl Alcohol mg/dL SARS-CoV-2 (PCR) Influenza Type A (PCR) Influenza Type B (PCR) RSV (RT-PCR) Diagnostic Findings 8 x5.1 x 5.9 cm right complex adnexal cystic lesion with calcification
--- NOTE | 2022-04-06 22:17 | Magnetic Resonance Report ---
MR MRCP CLINICAL HISTORY: r/o biliary obstruction TECHNIQUE: Multiplanar multisequence MR images of the abdomen were obtained, as per MRCP protocol. . COMPARISON: Comparison is made to CT abdomen pelvis 04/05/2022 FINDINGS: Lower chest: No acute abnormality Liver: Unremarkable. No focal lesions are seen. Gallbladder and biliary tree: Patient is status post cholecystectomy. Physiologic enlargement of the common bile duct is seen measuring up to 8 mm. Pancreas: There is a 5 mm cystic lesion in the body of the pancreas with a band connection to the siena n pancreatic duct. Spleen: Unremarkable. Adrenals: Unremarkable. Kidneys and ureters: Perinephric stranding is noted bilaterally. Bowel: Unremarkable. Lymph nodes Retroperitoneal: Unremarkable. Mesenteric: Unremarkable. Peritoneum: Normal Vessels: Unremarkable. Abdominal wall: Unremarkable. Bones: Unremarkable. IMPRESSION: 1. No evidence of biliary ductal obstruction. 2. Sidebranch IPMN measuring 5 mm. According to Fukuoka criteria, MRCP can be performed in 6 months, then every 2 years if there is no change. ACT 112: Negative or not required by law. Electronically signed by: Chase Farfan M.D. 04/06/2022 10:14 PM
[2022-04-07] MEDS: oxyCODONE HCL IR 5 MG TAB (IMMEDIATE RELEASE) PO PRN ×2 (02:31→21:20)
[2022-04-07] MEDS: LACTATED RINGER'S 1,000 ML IV SCH ×3 (04:24→15:19)
[2022-04-07] MEDS: ACETAMINOPHEN 325 MG TAB PO PRN ×2 (07:50→17:37)
[2022-04-07] MEDS: MULTIVITAMIN TAB PO SCH (08:04)
[2022-04-07] MEDS: PANTOprazole 40 MG TAB PO SCH ×2 (08:04→20:00)
[2022-04-07] MEDS: LORATADINE 10 MG TAB PO SCH (08:05)
[2022-04-07] MEDS: FOLIC ACID 1 MG TAB PO SCH (08:05)
[2022-04-07] MEDS: ASPIRIN 81 MG ECTAB PO SCH (08:05)
[2022-04-07] MEDS: LOSARTAN POTASSIUM 50 MG TAB PO SCH (08:05)
[2022-04-07] MEDS: MONTELUKAST SODIUM 10 MG TABLET PO SCH (08:06)
[2022-04-07] MEDS: FLUoxetine HCL 20 MG CAP PO SCH (08:06)
[2022-04-07] MEDS: THIAMINE HCL 100 MG TAB PO SCH (08:06)
[2022-04-07] MEDS: dilTIAZem HCL 240 MG CAPCR PO SCH (08:06)
[2022-04-07] MEDS: ROSUVASTATIN CALCIUM 20 MG TAB PO SCH (08:06)
[2022-04-07] MEDS: ENOXAPARIN INJ 40 MG/0.4 ML SYR SQ SCH (08:07)
[2022-04-07 08:50] LABS: Hematocrit (blood only) 34.8 % (34.1-44.9); Hemoglobin 11.8 g/dl (12.0-16.0); Mean Corpuscular Hemoglobin 35.4 pg (25.0-34.0); Mean Corpuscular Hgb Conc 33.9 g/dL (32.0-36.0); Mean Corpuscular Volume 104.5 fL (80.0-100.0); Mean Platelet Volume 9.9 fL (9.4-12.3); Platelet Count 215 K/uL (130-400); RDW Coefficient of Variation 11.7 % (11.5-14.5); RDW Standard Deviation 44.1 fL (36.4-46.3); Red Blood Count 3.33 M/uL (3.93-5.22); White Blood Count 6.73 K/ul (4.8-10.8)
[2022-04-07 09:08] LABS: BUN Creatinine Ratio 9.6 (10-20); Calcium 9.1 mg/dl (8.5-10.1); Est GFR (African American) 103.8 ml/min; Est GFR (Non-African American) 89.5 ml/min; Magnesium 1.3 mg/dl (1.7-2.4); Phosphorus 3.7 mg/dl (2.5-4.9); Potassium 4.2 mmol/L (3.5-5.1)
--- NOTE | 2022-04-07 09:09 | Gastroenterology Progress Note ---
Date of Service April 07, 2022 Assessment & Plan (1) Acute pancreatitis: Plan: 61 year old female w upper abd pain, n/v, diarrhea (resolved) found to have elevated LFTs and lipase suspected to have acute pancreatitis. She is s/p cholecystectomy, CT w mild biliary ductal dilation. She drinks ETOH and suspect that most likely has ETOH induced pancreatitis. MRCP reviewed, IPMN measuring 5 mm - Can be on a clear liquid diet today, it tolerating, advance slowly as tolerated to low fat diet - ETOH cessation advised - OP EUS in 4 to 6 week's time - OP colonoscopy (hx of tubovillous adenomatous polyp), we will help arrange appt - Will sign off. Recall as needed. Thank you for allowing us to participate in the care of this patient. Please call with any acute changes, questions or concerns. Please see addendum below with additional recommendation from my supervising physician. Admission and Anticipated Discharge Date Admission Date: April 05, 2022 Supervising Physician Co-Signing Physician Notes Patient was unavailable during rounds today. We did try to stop by several occasions however she was unavailable Reccomendations: OP EUS to be scheudled in 6-8 weeks OP colonoscopy Recommend alcohol abstinence Please call with any questions or concerns GI to sign off Subjective Pt was seen and evaluated, chart reviewed. Feeling improved. Less pain, when occurs less severe. Tolerating water, wants to try some clears. No BM since arrival. Does not often get constipated like this. TB 0.5 AST 66 ALT 55 ALK 134 Lipase 195 CTAP: Mild biliary ductal dilatation. This is likely related to cholecystectomy however correlation for function tests is recommended.8.2 x 5.9 cm right adnexal cystic lesion which contains a septation and possible slight mural nodularity. This likely arises from the right ovary. Differential considerations include benign and malignant etiologies. Nonemergent pelvic ultrasound and gynecologic consultation are recommended. Sigmoid diverticulosis. No evidence for acute diverticulitis. MRCP:No evidence of biliary ductal obstruction. 2. Sidebranch IPMN measuring 5 mm. According to Fukuoka criteria, MRCP can be performed in 6 months, then every 2 years if there is no change. Review of Systems Review of Systems: All systems reviewed & are unremarkable except as noted in HPI & below Physical Exam Constitutional: WD/WN, vitals as above Respiratory: normal respiratory effort, lungs clear to auscultation Cardiovascular: Rate/Rhythm: regular rate Gastrointestinal (Abdomen): normal bowel sounds, soft, nontender, no hepatosplenomegaly Skin: no rashes, warm and dry Results & Data ([facility]) Vital Signs (Past 12 Hours) Vital Signs Temp Pulse Pulse Resp BP Pulse Ox O2 Del Method 04/07/22 08:21 37.3 C 70 14 148/83 H 96 Nasal Cannula 04/07/22 08:10 66 167/83 H 94 Room Air 04/06/22 21:36 98 Nasal Cannula 04/06/22 21:35 36.8 C 76 18 150/81 H 80 L Room Air O2 Flow Rate 04/07/22 08:21 2 04/07/22 08:10 04/06/22 21:36 2 04/06/22 21:35 Laboratory Results 04/07/22 04/07/22 04/07/22 Range/Units 08:00 08:00 08:00 WBC 6.73 (4.8-10.8) K/ul RBC 3.33 L (3.93-5.22) M/uL Hgb 11.8 L (12.0-16.0) g/dl Hct 34.8 (34.1-44.9) % MCV 104.5 H (80.0-100.0) fL MCH 35.4 H (25.0-34.0) pg MCHC 33.9 (32.0-36.0) g/dL RDW Std Deviation 44.1 (36.4-46.3) fL RDW Coeff of Tristan 11.7 (11.5-14.5) % Plt Count 215 (130-400) K/uL MPV 9.9 (9.4-12.3) fL Sodium Pending (136-145) mmol/L Potassium Pending (3.5-5.1) mmol/L Chloride Pending (98-107) mmol/L Carbon Dioxide Pending (21-32) mmol/L Anion Gap Pending (3-11) BUN Pending (6-23) mg/dl Creatinine Pending (0.6-1.2) mg/dl Est Cr Clr Drug Dosing Pending ml/min Est GFR ( Amer) Pending ml/min Est GFR (Non-Af Amer) Pending ml/min BUN/Creatinine Ratio Pending (10-20) Glucose Pending (70-99(Fasting)) mg/dl Calcium Pending (8.5-10.1) mg/dl Phosphorus Pending Magnesium Pending Total Bilirubin (0.2-1.0) mg/dl AST (13-39) U/L ALT (7-52) U/L Alkaline Phosphatase (34-104) U/L Total Protein (6.0-8.3) gm/dl Albumin (3.4-5.0) gm/dl Globulin (2.5-4.0) gm/dl Albumin/Globulin Ratio (0.9-2) CA 125 Antigen Pending 04/06/22 Range/Units 07:48 WBC (4.8-10.8) K/ul RBC (3.93-5.22) M/uL Hgb (12.0-16.0) g/dl Hct (34.1-44.9) % MCV (80.0-100.0) fL MCH (25.0-34.0) pg MCHC (32.0-36.0) g/dL RDW Std Deviation (36.4-46.3) fL RDW Coeff of Tristan (11.5-14.5) % Plt Count (130-400) K/uL MPV (9.4-12.3) fL Sodium 139 (136-145) mmol/L Potassium 4.1 D (3.5-5.1) mmol/L Chloride 103 (98-107) mmol/L Carbon Dioxide 32 (21-32) mmol/L Anion Gap 4 (3-11) BUN 10 (6-23) mg/dl Creatinine 0.85 (0.6-1.2) mg/dl Est Cr Clr Drug Dosing 68.7 ml/min Est GFR ( Amer) 86.3 ml/min Est GFR (Non-Af Amer) 74.5 ml/min BUN/Creatinine Ratio 11.8 (10-20) Glucose 87 (70-99(Fasting)) mg/dl Calcium 9.2 (8.5-10.1) mg/dl Phosphorus Magnesium Total Bilirubin 0.5 (0.2-1.0) mg/dl AST 66 H (13-39) U/L ALT 55 H (7-52) U/L Alkaline Phosphatase 134 H (34-104) U/L Total Protein 6.0 (6.0-8.3) gm/dl Albumin 3.4 (3.4-5.0) gm/dl Globulin 2.6 (2.5-4.0) gm/dl Albumin/Globulin Ratio 1.3 (0.9-2) CA 125 Antigen
[2022-04-07] MEDS: MAGNESIUM SULFATE / D5W 1 GM/100 ML BAG IV SCH ×3 (10:06→14:05)
--- NOTE | 2022-04-07 16:26 | Hospitalist Progress Note ---
Date of Service April 07, 2022 Assessment & Plan (1) Acute pancreatitis: Plan 61-year-old lady with PMH of A. fib status post ablation, HTN, MTHFR mutation, cerebral aneurysm, bronchial asthma, gastroparesis, alcohol abuse, past tobacco abuse presented to the ED 04/05 with complaint of acute epigastric pain radiating to her back associated with nausea/vomiting/diarrhea symptoms. Of note, patient reports daily alcohol intake and occasionally heavy. She is being managed for the following: Likely Acute pancreatitis: Presents with epigastric pain radiating to back, lipase elevated, admitting CT abdomen pelvis reviewed. Possibly alcohol induced, history of cholecystectomy. MRCP w/ IPMN measuring 5 mm, f/u GI as OP. Patient reports improving epigastric pain, on clears, ADAT, c/w pain Mx. DC IVF. GI on board, EUS in 4-6 wks of DC. Alcohol cessation counseling done. Pt positive about quitting drinking. Alcoholic steatosis: LFT mildly elevated, alcohol cessation encouraged, follow- up. Trending down. SHAHZAD S protocol if with signs of alcohol withdrawal. Right adnexal mass: 8.2 x 5.9 cm right adnexal cystic lesion noted in the CTAP with septation/possible mural nodularity. Pelvic ultrasound and transvaginal ultrasound with 8 cm complex septated cystic lesion in the right adnexa likely related to the right ovary. Gynecology evaled, needs OP follow up. Other chronic medical conditions: A. fib status post ablation, HTN, MTHFR mutation, cerebral aneurysm, bronchial asthma, past tobacco abuse --- resume home meds as able. DVT prophylaxis: Lovenox subcu Full code Plan of care discussed with patient. Admission and Anticipated Discharge Date Admission Date: April 05, 2022 Subjective Patient seen and examined patient as a follow-up of acute pancreatitis and right adnexal lesion. Patient was lying in bed, on room air, NAD, reports no new acute event overnight, is on clear diet now, reports better control of pain, is receiving pain medications as needed, reports feeling better, denies headache/fever/dizziness/sore throat/cough/chest pain/other review of symptoms. Physical Exam Physical Exam: GENERAL: Alert and oriented x3. NAD, on RA. Obese Class I HEENT: No pallor, no icterus. Pupils equal, round and reactive to light. Oral mucosa moist. NECK: No JVD, no neck masses. HEART: S1 and S2 heard. Regular rate and rhythm. No murmur, no gallop. RESPIRATORY SYSTEM: Normal AP diameter. No accessory muscle use. No wheezing, no crackles. ABDOMEN: Soft, bowel sounds present, Tender Epigastric improving, no distention. CENTRAL NERVOUS SYSTEM: No facial droop. Speech is clear. Obeys simple commands. Moves extremities. EXTREMITIES: No edema, no erythema seen. Results & Data Results & Data ([facility]) Vital Signs (Past 12 Hours) Vital Signs Temp Pulse Pulse Resp BP Pulse Ox O2 Del Method 04/07/22 14:19 37.3 C 67 17 146/74 H 94 Room Air 04/07/22 11:59 37.3 C 70 14 160/83 H 95 Room Air 04/07/22 08:21 37.3 C 70 14 148/83 H 96 Nasal Cannula 04/07/22 08:10 66 167/83 H 94 Room Air O2 Flow Rate 04/07/22 14:19 04/07/22 11:59 04/07/22 08:21 2 04/07/22 08:10
[2022-04-07] MEDS ORDERED: POLYETHYLENE (MIRALAX) 17 GM PACK PO STA (19:53)
[2022-04-07] MEDS ORDERED: POLYETHYLENE (MIRALAX) 17 GM PACK PO PRN (19:53)
[2022-04-07] MEDS: DOCUSATE SODIUM/SENNA 50/8.6MG TAB PO SCH (21:20)
[2022-04-08] MEDS: ACETAMINOPHEN 325 MG TAB PO PRN (07:21)
[2022-04-08 07:33] LABS: BUN Creatinine Ratio 5.7 (10-20); Calcium 9.2 mg/dl (8.5-10.1); Creatinine Clr Calc Pharmacy 66.4 ml/min; Est GFR (African American) 82.8 ml/min; Est GFR (Non-African American) 71.4 ml/min; Magnesium 1.8 mg/dl (1.7-2.4); Potassium 3.9 mmol/L (3.5-5.1)
[2022-04-08] MEDS: ASPIRIN 81 MG ECTAB PO SCH (08:14)
[2022-04-08] MEDS: dilTIAZem HCL 240 MG CAPCR PO SCH (08:14)
[2022-04-08] MEDS: PANTOprazole 40 MG TAB PO SCH (08:14)
[2022-04-08] MEDS: FOLIC ACID 1 MG TAB PO SCH (08:14)
[2022-04-08] MEDS: DOCUSATE SODIUM/SENNA 50/8.6MG TAB PO SCH (08:14)
[2022-04-08] MEDS: ROSUVASTATIN CALCIUM 20 MG TAB PO SCH (08:15)
[2022-04-08] MEDS: LOSARTAN POTASSIUM 50 MG TAB PO SCH (08:15)
[2022-04-08] MEDS: LORATADINE 10 MG TAB PO SCH (08:15)
[2022-04-08] MEDS: MULTIVITAMIN TAB PO SCH (08:15)
[2022-04-08] MEDS: FLUoxetine HCL 20 MG CAP PO SCH (08:15)
[2022-04-08] MEDS: THIAMINE HCL 100 MG TAB PO SCH (08:16)
[2022-04-08] MEDS: MONTELUKAST SODIUM 10 MG TABLET PO SCH (08:16)
[2022-04-08] MEDS: ENOXAPARIN INJ 40 MG/0.4 ML SYR SQ SCH (08:16)
--- NOTE | 2022-04-08 16:24 | Discharge Summary ---
Date of Service April 08, 2022 Admission HPI Per Admitting Provider History obtained from patient, family, and records. Medical history significant for A. fib status post ablation, hypertension, hx MTHFR mutation, history cerebral aneurysm as per records, bronchial asthma, history of gastroparesis, alcohol abuse, past tobacco abuse. Last confinement 2013 at the behavioral health unit for depression and suicidality. Patient experienced achy epigastric pain symptoms going to her chest with nausea, emesis, diarrhea symptoms. Somewhat heavy lunch today. Daily alcohol intake occasionally heavy as per patient. No prior episodes. No fever, no chills. Patient brought to the ER by . 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 Admission Exam Per Admitting Provider GENERAL: Comfortable, pleasant, obese, no respiratory distress SKIN: Normal color, warm HEENT: [place] palpebral conjunctivae, no ptosis, dry buccal mucosa NECK : Supple, short neck, no tenderness CHEST : CTA, no tenderness HEART : RRR, no obvious murmurs ABDOMEN: Some distention, epigastric tenderness EXTREMITIES : Minimal LE swelling, no LE tenderness, no other conspicuous deformities noted NEUROLOGIC : Coherent, no facial asymmetry, no other gross focality Principal Diagnosis Acute pancreatitis Alcoholic steatohepatitis Right adnexal mass IPMN Discharge Exam GENERAL: Alert and oriented x3. NAD, on RA. Obese Class I HEENT: No pallor, no icterus. Pupils equal, round and reactive to light. Oral mucosa moist. NECK: No JVD, no neck masses. HEART: S1 and S2 heard. Regular rate and rhythm. No murmur, no gallop. RESPIRATORY SYSTEM: Normal AP diameter. No accessory muscle use. No wheezing, no crackles. ABDOMEN: Soft, bowel sounds present, Tender Epigastric improving, no distention. CENTRAL NERVOUS SYSTEM: No facial droop. Speech is clear. Obeys simple commands. Moves extremities. EXTREMITIES: No edema, no erythema seen. Discharge Data Allergies Allergy/AdvReac Type Severity Reaction Status Date / Time lisinopril Allergy Mild . Verified 04/05/22 21:21 erythromycin base Allergy Unknown Verified 12/05/12 11:30 ketorolac Allergy Unknown Verified 12/05/12 11:30 Consultations 04/05/22 20:45 ED Decision to Admit Stat 04/06/22 02:17 Consult Gastroenterology Routine 04/06/22 16:10 Consult Gynecology Routine Ordered Studies 04/05/22 20:18 CT Abd and Pelvis [CT abd pelvis IV con only] Stat 04/06/22 00:52 US pelvic complete Routine US transvaginal Routine 04/06/22 12:35 MR MRCP Routine Hospital Course (1) Acute pancreatitis: Plan 61-year-old lady with PMH of A. fib status post ablation, HTN, MTHFR mutation, cerebral aneurysm, bronchial asthma, gastroparesis, alcohol abuse, past tobacco abuse presented to the ED 04/05 with complaint of acute epigastric pain radiating to her back associated with nausea/vomiting/diarrhea symptoms. Of note, patient reports daily alcohol intake and occasionally heavy. She is being managed for the following: Likely Acute pancreatitis Alcohol induced pancreatitis IPMN Presents with epigastric pain radiating to back, lipase elevated, admitting CT abdomen pelvis reviewed. Possibly alcohol induced, history of cholecystectomy. MRCP w/ IPMN measuring 5 mm, f/u GI as OP. Patient reports improving epigastric pain, tolerating diet well, decreasing need for pain medications. GI eval, EUS in 4-6 wks of DC. Patient to follow-up with GI as outpatient, patient over Alcohol cessation counseling done. Pt positive about quitting drinking. Per patient's , patient drinks 4 to 6 glasses of wine every day and more over the weekends, today eats day 3-4 from last alcoholic drink, patient would like to go home, will discharge on Librium taper. Alcoholic steatosis: LFT mildly elevated, alcohol cessation encouraged, follow- up. Trending down. SHAHZAD S protocol if with signs of alcohol withdrawal. Right adnexal mass: 8.2 x 5.9 cm right adnexal cystic lesion noted in the CTAP with septation/possible mural nodularity. Pelvic ultrasound and transvaginal ultrasound with 8 cm complex septated cystic lesion in the right adnexa likely related to the right ovary. Gynecology evaled, needs OP follow up. Other chronic medical conditions: A. fib status post ablation, HTN, MTHFR mutation, cerebral aneurysm, bronchial asthma, past tobacco abuse --- resume home meds as able. DVT prophylaxis: Lovenox subcu Full code Plan of care discussed with the patient and patient's . Following instructions were communicated at the point of discharge: Follow-up with your primary care physician within a week time and likely you will need labs CBC/CMP/magnesium/phosphorus. It is very important that you establish and follow-up with GI doctor as an outpatient, likely you will need outpatient EUS in 4 to 6 weeks. As discussed at the bedside you have a lesion in your pancreas around 5 mm which we call " IPMN", you will need follow-up with GI. Also you have right adnexal mass noted in the CT scan while in hospital, you will need to establish and follow-up with gynecology as discussed at bedside. It is very important that you stop any and all alcoholic beverages intake going forward. Take your medications as prescribed. Home Health Attestation I certify that this patient is under my care and that I, or a physicians surgical physician assistant working with me, had a face to-face encounter that meets the home health [id number] encounter requirements with this patient. The encounter with the patient was in whole, or in part, for the following medical condition, which is the primary reason for home health care (list medical condition): I certify that, based on my findings, the following services are medically necessary home health services: My clinical findings support the need for the above services because: Further, I certify that my clinical findings support that this patient is homebound (i.e. absences from home require considerable and taxing effort and are for medical reasons or caodaism services or infrequently or of short duration when for other reasons) because: Certification for Home Health Services: Based on the above findings, I certify that this patient is confined to the home and needs intermittent shelter care, physical therapy and/or speech therapy or continues to need occupational therapy. The patient is under my care, and I have initiated the establishment of the plan of care. This patient will be followed by a physician who will periodically review the plan of care. Total Time Total Time Spent Total Time Spent (In Minutes): 50 Discharge Plan Discharge Items Patient Disposition: Home - Self-Care Reason For Visit: PANCREATITIS Discharge Diagnosis: Acute pancreatitis Alcoholic steatohepatitis Right adnexal mass IPMN Activity: Resume your previous activity Non-emergency contact: Primary Care Provider Call non-emergency contact if: you have any medication questions, your symptoms worsen, your pain is worsening and your temperature is above 101 Follow-up/Referrals: Ranjan Howard MD [Primary Care Provider] - (Date & Time 04/13/2022 11:20 AM Provider Ranjan Howard MD Department [facility] ) Diet: Low Fat Diet Texture: Easy to Chew Addtl Attending Provider Instructions: Follow-up with your primary care physician within a week time and likely you will need labs CBC/CMP/magnesium/phosphorus. It is very important that you establish and follow-up with GI doctor as an outpatient, likely you will need outpatient EUS in 4 to 6 weeks. As discussed at the bedside you have a lesion in your pancreas around 5 mm which we call " IPMN", you will need follow-up with GI. Also you have right adnexal mass noted in the CT scan while in hospital, you will need to establish and follow-up with gynecology as discussed at bedside. It is very important that you stop any and all alcoholic beverages intake going forward. Take your medications as prescribed. Pending Studies at Discharge: No Stand-Alone Forms: My [facility], Smoking Cessation Medications and DC Order Prescriptions: New folic acid 1 mg Tablet 1 mg PO QAM Qty: 30 0RF thiamine HCl (vitamin B1) 100 mg Tablet 100 mg PO QAM Qty: 30 0RF oxycodone-acetaminophen [Endocet] 5-325 mg tablet 1 tab PO BID PRN (Reason: pain (scale score 7-10)) 3 Days Qty: 6 0RF chlordiazepoxide HCl 25 mg capsule See Rx Instructions .ROUTE .COMPLEX Qty: 6 0RF Rx Instructions: 25 mg orally: 1 tab every 8 hours on day 1, then 1 tab every 12 hours on day 2 and then one tab one time dose on day 3; then stop. Continued diltiazem HCl 240 mg capsule,extended release 24hr 240 mg PO DAILY fluoxetine 40 mg capsule 40 mg PO DAILY hydrochlorothiazide 25 mg tablet 25 mg PO DAILY losartan 100 mg tablet 100 mg PO DAILY rosuvastatin 20 mg tablet 20 mg PO DAILY montelukast 10 mg Tablet 10 mg PO QAM alprazolam 0.25 mg Tablet 0.25 mg PO QID PRN (Reason: Anxiety) potassium chloride [Klor-Con 10] 10 mEq Tablet Extended Release 20 meq PO QAM omeprazole 20 mg Capsule,Delayed Release(Dr/Ec) 20 mg PO BID loratadine 10 mg Tablet 10 mg PO DAILY magnesium oxide 400 mg magnesium Tablet 400 mg PO DAILY albuterol sulfate [ProAir HFA] 90 mcg/actuation Hfa Aerosol Inhaler 2 puff INHALATION QID PRN (Reason: Shortness Of Breath Or Wheezing) aspirin 81 mg Tablet,Delayed Release (Dr/Ec) 81 mg PO DAILY naproxen sodium [Aleve] 220 mg Tablet 440 mg PO .Q4H/UD Rx Instructions: TWO TABS EVERY 4 HOURS FIRST 2-3 DAYS OF MENSES multivitamin Tablet 1 tab PO DAILY Discharge Orders: Discharge Order (Routine); Ordered 04/08/22 Ordered By: Cristobal Zambrano Admission Data Admit Date/Time: 04/05/22 23:50 Attending Provider: Cristobal Zambrano Admit Provider: Otto Philippe Primary Care Provider: Ranjan Howard Other Providers: Otto Philippe ; Mandie Hairston ; Dmitry Marshall ; Jeannine Bradford ; Liana Aviles ; Deedee Phan ; Naima Garcia ; Pj Chambers ; Mahin Mora ; Adin Huynh ; Maciel Alicia ; Salbador Almaraz ; Shahida Holley ; Meliza Gambino ; Gay Villanueva ; Li Dick ; Addison Amato ; Barry Gardiner ; Christiano Chen ; Nai Tenorio ; Vi Nguyen Jr ; Cresencoi Steve
== END 2022-04-08 17:03 | disposition home or self-care (01) | DRG 440 ==
LOC: ED 18:35 → 3W 23:50

== ENCOUNTER 2022-06-07 11:40 | Inpatient (IN) ==
[2022-06-07] MEDS ORDERED: MoRPHine SULFATE 4 MG/ML 1 ML CARP\\VIAL IV STA (12:00)
[2022-06-07] MEDS ORDERED: ONDANSETRON INJ 2 MG/ML 2 ML VIAL IV STA ×2 (12:00→18:19)
[2022-06-07] MEDS ORDERED: SODIUM CHLORIDE 0.9% 1000ML 1,000 ML IV ONE (12:00)
[2022-06-07] MEDS ORDERED: ACETAMINOPHEN 1,000 MG/100 ML VIAL IV STA (12:01)
--- NOTE | 2022-06-07 12:06 | Emergency Department Note ---
Impression & Plan RLQ abdominal pain, Vomiting, Right ovarian cyst, Failure of outpatient treatment ED Provider Note NAME: ZULMA BOWMAN AGE: 61 SEX: F : 1960 ARRIVES VIA: Walk-In INFORMANT: [Patient] ED PROVIDER(S): [Davie Maguire MD] CHIEF COMPLAINT: Abdominal pain HISTORY OF PRESENT ILLNESS: The patient is a 61-year-old female with a history of cholecystectomy who states that in March, she was in the hospital for pancreatitis. At that time, they found a lesion on the right ovary. She is scheduled to have the lesion removed next month. The patient was in the ED in April for diverticulitis. She was prescribed Augmentin. The patient states that for the last 2 hours, she has had severe pain in the right lower quadrant that seems to radiate to the back. She is concerned that it is the right ovarian lesion that was found. She was told to come to the hospital if the pain were ever to become severe. The patient has had nausea and vomiting. She has no urinary burning or urgency. She does urinate a lot but is on a diuretic. She has not had cough, congestion or shortness of breath. No diarrhea. PMHx/PSHx: See Below SOCIAL HISTORY: See Below. PHYSICAL EXAM: GENERAL: Patient is in mild distress from pain. HEENT: No acute trauma, normocephalic atraumatic, mucous membranes moist, no nasal congestion. NECK: No stridor, no adenopathy, no meningismus, trachea is midline. LUNGS: Clear to auscultation bilaterally, no wheeze, no rhonchi, breath sounds equal. HEART: Without murmurs gallops or rubs, regular rate and rhythm. ABDOMEN: Soft, moderately to significantly tender in the right lower quadrant, mild tenderness throughout the rest of the abdomen. No distention. EXTREMITIES: No cyanosis, full range of motion of all the joints without pain or difficulty, no signs for acute trauma. NEUROLOGIC: Oriented x 3, no acute motor or sensory deficits, no focal weakness. SKIN: No rash, no jaundice, no diaphoresis. DIFFERENTIAL DIAGNOSIS: Ovarian torsion, ovarian mass, diverticulitis, appendicitis, biliary colic, UTI, pyelonephritis, renal colic, pancreatitis, among others. EMERGENCY DEPARTMENT COURSE/PROCEDURES: Prior/Outside records reviewed: Recent discharge summary, recent ED visit note. MEDICAL DECISION MAKING: There is no leukocytosis or concerning anemia. There is a normal platelet count. Potassium was normal, sodium was somewhat low at 132. No renal failure. No concerning liver enzyme elevation. No evidence for pancreatitis. Urinalysis did not show infection. COVID test returned negative. Abdominal and pelvis CT shows a large right ovarian cyst/mass. Pelvic ultrasound shows the same findings. Peripheral blood flow was noted by ultrasound. On exam, the patient was uncomfortable and tender in the right lower quadrant. She was not toxic or febrile. Patient received IV saline, IV Zofran and IV morphine. She was given IV Tylenol and IV Dilaudid. A second dose of IV Zofran was given, additional IV morphine was given. The patient is quite uncomfortable from this lesion on the right ovary. I did speak with Dr. Steve of OB. He plans on taking the patient to the OR tonight for surgical resection. The patient is aware of the findings and the plan. She is currently n.p.o., she is more comfortable with the pain medication administered. Case management has been involved DISPOSITION: Patient presentation and findings warrant OB consultation and surgical intervention. Past Med/Surg History Medical History Acute pancreatitis HTN (hypertension) Ovarian cystic mass Social History Smoking Status: Former smoker Second Hand Exposure: No; Hx Alcohol Use: Yes Alcohol type: wine Hx Substance Use: No Preferred Language: Citizen Of [place] Communication Ability: Effective Home Health Cna Required: No Beliefs That Will Affect Care: None Current Living Situation: Spouse Feels Safe at Home: Yes Assistive Devices: None Allergies Allergies Allergy/AdvReac Type Severity Reaction Status Date / Time SAMIR Inhibitors AdvReac Intermediate Cough Verified 05/11/22 18:33 erythromycin base AdvReac Intermediate Gastrointestinal Verified 05/11/22 18:33 Upset ketorolac AdvReac Intermediate Gastrointestinal Verified 05/11/22 18:33 Upset lisinopril AdvReac Mild Cough Verified 05/11/22 18:33 Home Meds Home Medications Medication Instructions Recorded Confirmed albuterol sulfate 90 mcg/actuation 2 puff inhalation QID PRN 04/05/22 05/11/22 aerosol inhaler (ProAir HFA) Shortness Of Breath Or Wheezing alprazolam 0.25 mg tablet 0.25 mg PO QID PRN Anxiety 04/05/22 05/11/22 aspirin 81 mg tablet,delayed 81 mg PO DAILY 04/05/22 05/11/22 release diltiazem HCl 240 mg 240 mg PO DAILY 04/05/22 05/11/22 capsule,extended release 24 hr fluoxetine 40 mg capsule 40 mg PO DAILY 04/05/22 05/11/22 hydrochlorothiazide 25 mg tablet 25 mg PO DAILY 04/05/22 05/11/22 loratadine 10 mg tablet 10 mg PO DAILY 04/05/22 05/11/22 losartan 100 mg tablet 100 mg PO DAILY 04/05/22 05/11/22 multivitamin 1 tab PO DAILY 04/05/22 05/11/22 naproxen sodium 220 mg tablet 440 mg PO Q4H PRN CRAMPING 04/05/22 05/11/22 (Aleve) omeprazole 20 mg capsule,delayed 20 mg PO BID 04/05/22 05/11/22 release potassium chloride 10 mEq 20 meq PO QAM 04/05/22 05/11/22 tablet,extended release (Klor-Con) rosuvastatin 20 mg tablet 20 mg PO DAILY 04/05/22 05/11/22 Previous Rx's Medication Instructions Recorded folic acid 1 mg tablet 1 mg PO QAM #30 tabs 04/08/22 thiamine HCl (vitamin B1) 100 mg 100 mg PO QAM #30 tabs 04/08/22 tablet amoxicillin 875 mg-potassium 1 tab PO BID #18 tabs 05/11/22 clavulanate 125 mg tablet hydrocodone 5 mg-acetaminophen 325 1 - 2 tab PO Q6H PRN pain #10 tabs 05/11/22 mg tablet promethazine 25 mg tablet 25 mg PO Q6H PRN nausea and 05/11/22 vomiting #10 tabs Results & Data (ED) Vital Signs Vital Signs - 24 hr 06/07/22 11:42 06/07/22 12:34 06/07/22 12:33 Temperature 36.8 C Temperature Source Temporal Artery Scan Pulse Rate 72 52 L 56 L Pulse Rate from SpO2 Sensor 55 L Respiratory Rate 18 15 Respiratory Depth Normal Blood Pressure 135/73 Blood Pressure Mean 93 Blood Pressure Position Sitting Pulse Oximetry 97 98 Oxygen Delivery Method Room Air Sepsis Recent Fever Within 48 Hours No Sepsis New/Unexplained Change in Mental Status No Sepsis Action Taken by Nursing No Action Required 06/07/22 12:40 06/07/22 12:50 06/07/22 16:14 Temperature Temperature Source Pulse Rate 55 L 54 L 52 L Pulse Rate from SpO2 Sensor 55 L 55 L Respiratory Rate 12 16 Respiratory Depth Blood Pressure Blood Pressure Mean Blood Pressure Position Pulse Oximetry 99 96 Oxygen Delivery Method Sepsis Recent Fever Within 48 Hours Sepsis New/Unexplained Change in Mental Status Sepsis Action Taken by Nursing 06/07/22 13:00 06/07/22 13:19 06/07/22 13:32 Temperature Temperature Source Pulse Rate 52 L 68 61 Pulse Rate from SpO2 Sensor 53 L 68 60 Respiratory Rate 12 18 12 Respiratory Depth Blood Pressure Blood Pressure Mean Blood Pressure Position Pulse Oximetry 96 95 95 Oxygen Delivery Method Sepsis Recent Fever Within 48 Hours Sepsis New/Unexplained Change in Mental Status Sepsis Action Taken by Nursing 06/07/22 13:45 06/07/22 14:00 06/07/22 14:15 Temperature Temperature Source Pulse Rate 55 L 53 L 57 L Pulse Rate from SpO2 Sensor 56 L 53 L 58 L Respiratory Rate 12 14 20 Respiratory Depth Blood Pressure Blood Pressure Mean Blood Pressure Position Pulse Oximetry 96 98 96 Oxygen Delivery Method Sepsis Recent Fever Within 48 Hours Sepsis New/Unexplained Change in Mental Status Sepsis Action Taken by Nursing 06/07/22 14:30 06/07/22 14:45 06/07/22 15:00 Temperature Temperature Source Pulse Rate 49 L 57 L 55 L Pulse Rate from SpO2 Sensor 50 L 52 L 54 L Respiratory Rate 14 14 17 Respiratory Depth Blood Pressure Blood Pressure Mean Blood Pressure Position Pulse Oximetry 98 98 98 Oxygen Delivery Method Sepsis Recent Fever Within 48 Hours Sepsis New/Unexplained Change in Mental Status Sepsis Action Taken by Nursing 06/07/22 15:15 06/07/22 15:37 06/07/22 15:45 Temperature Temperature Source Pulse Rate 51 L 71 56 L Pulse Rate from SpO2 Sensor 51 L 55 L Respiratory Rate 15 15 14 Respiratory Depth Blood Pressure Blood Pressure Mean Blood Pressure Position Pulse Oximetry 98 93 Oxygen Delivery Method Sepsis Recent Fever Within 48 Hours Sepsis New/Unexplained Change in Mental Status Sepsis Action Taken by Nursing 06/07/22 16:00 06/07/22 16:15 06/07/22 16:30 Temperature Temperature Source Pulse Rate 52 L 52 L 57 L Pulse Rate from SpO2 Sensor 52 L 52 L Respiratory Rate 14 15 20 Respiratory Depth Blood Pressure Blood Pressure Mean Blood Pressure Position Pulse Oximetry 94 98 Oxygen Delivery Method Sepsis Recent Fever Within 48 Hours Sepsis New/Unexplained Change in Mental Status Sepsis Action Taken by Nursing 06/07/22 16:45 06/07/22 17:00 06/07/22 17:15 Temperature Temperature Source Pulse Rate 55 L 50 L 51 L Pulse Rate from SpO2 Sensor 53 L 51 L 51 L Respiratory Rate 13 15 16 Respiratory Depth Blood Pressure Blood Pressure Mean Blood Pressure Position Pulse Oximetry 95 94 89 L Oxygen Delivery Method Sepsis Recent Fever Within 48 Hours Sepsis New/Unexplained Change in Mental Status Sepsis Action Taken by Nursing 06/07/22 17:30 06/07/22 17:45 06/07/22 18:00 Temperature Temperature Source Pulse Rate 50 L 71 49 L Pulse Rate from SpO2 Sensor 50 L 49 L Respiratory Rate 16 15 Respiratory Depth Blood Pressure Blood Pressure Mean Blood Pressure Position Pulse Oximetry 93 94 Oxygen Delivery Method Sepsis Recent Fever Within 48 Hours Sepsis New/Unexplained Change in Mental Status Sepsis Action Taken by Nursing 06/07/22 18:15 06/07/22 18:30 06/07/22 18:45 Temperature Temperature Source Pulse Rate 53 L 50 L 52 L Pulse Rate from SpO2 Sensor 52 L 50 L 51 L Respiratory Rate 13 15 15 Respiratory Depth Blood Pressure Blood Pressure Mean Blood Pressure Position Pulse Oximetry 96 95 91 Oxygen Delivery Method Sepsis Recent Fever Within 48 Hours Sepsis New/Unexplained Change in Mental Status Sepsis Action Taken by [facility] Medications Current Medication List: was personally reviewed by me Laboratory Data Attestation: I reviewed the patient's lab results. 06/07/22 12:10 06/07/22 12:10 Lab Results 06/07/22 06/07/22 06/07/22 Range/Units 12:00 12:10 12:10 WBC 7.46 (4.8-10.8) K/ul RBC 4.01 L (4.20-5.40) M/uL Hgb 13.2 (12.0-16.0) g/dl Hct 37.7 (37.0-47.0) % MCV 94.0 (80.0-100.0) fL MCH 32.9 (25.0-34.0) pg MCHC 35.0 (32.0-36.0) g/dL RDW Std Deviation 39.0 (36.4-46.3) fL RDW Coeff of Tristan 11.3 L (11.5-14.5) % Plt Count 351 (130-400) K/uL MPV 9.5 (9.4-12.4) fL Immature Gran % (Auto) 0.4 % Neut % (Auto) 59.9 % Lymph % (Auto) 29.6 % Republic % (Auto) 6.8 % Eos % (Auto) 2.5 % Baso % (Auto) 0.8 % Neut # (Auto) 4.46 (1.40-6.50) K/uL Lymph # (Auto) 2.21 (1.2-3.4) K/uL Republic # (Auto) 0.51 (0.11-0.59) K/uL Eos # (Auto) 0.19 (0-0.50) K/uL Baso # (Auto) 0.06 (0-0.2) K/uL Immature Gran # (Auto) 0.03 (0.01-0.20) K/uL Sodium 132 L (136-145) mmol/L Potassium 3.7 (3.5-5.1) mmol/L Chloride 95 L (98-107) mmol/L Carbon Dioxide 26 (21-32) mmol/L Anion Gap 11 (3-11) BUN 8 (6-23) mg/dl Creatinine 0.83 (0.6-1.2) mg/dl Est Cr Clr Drug Dosing 71.1 ml/min Est GFR ( Amer) 88.8 ml/min Est GFR (Non-Af Amer) 76.6 ml/min BUN/Creatinine Ratio 9.6 L (10-20) Glucose 104 H (70-99(Fasting)) mg/dl Calcium 9.4 (8.5-10.1) mg/dl Total Bilirubin 0.4 (0.2-1.0) mg/dl AST 24 (13-39) U/L ALT 25 (7-52) U/L Alkaline Phosphatase 92 (34-104) U/L Total Protein 7.1 (6.0-8.3) gm/dl Albumin 4.3 (3.4-5.0) gm/dl Globulin 2.8 (2.5-4.0) gm/dl Albumin/Globulin Ratio 1.5 (0.9-2) Lipase 34 (11-82) U/L Urine Color Yellow Urine Appearance Clear (Clear) Urine pH 5.5 (4.5-7.5) Ur Specific [place] 1.007 (1.000-1.030) Urine Protein Negative (Negative) Urine Glucose (UA) Negative (Negative) Urine Ketones Negative (Negative) Urine Blood Negative (Negative) Urine Nitrite Negative (Negative) Urine Bilirubin Negative (Negative) Urine Urobilinogen Negative (Negative) Ur Leukocyte Esterase Negative (Negative) SARS-CoV-2, RNA, NAAT (NEGATIVE) 06/07/22 Range/Units 14:00 WBC (4.8-10.8) K/ul RBC (4.20-5.40) M/uL Hgb (12.0-16.0) g/dl Hct (37.0-47.0) % MCV (80.0-100.0) fL MCH (25.0-34.0) pg MCHC (32.0-36.0) g/dL RDW Std Deviation (36.4-46.3) fL RDW Coeff of Tristan (11.5-14.5) % Plt Count (130-400) K/uL MPV (9.4-12.4) fL Immature Gran % (Auto) % Neut % (Auto) % Lymph % (Auto) % Republic % (Auto) % Eos % (Auto) % Baso % (Auto) % Neut # (Auto) (1.40-6.50) K/uL Lymph # (Auto) (1.2-3.4) K/uL Republic # (Auto) (0.11-0.59) K/uL Eos # (Auto) (0-0.50) K/uL Baso # (Auto) (0-0.2) K/uL Immature Gran # (Auto) (0.01-0.20) K/uL Sodium (136-145) mmol/L Potassium (3.5-5.1) mmol/L Chloride (98-107) mmol/L Carbon Dioxide (21-32) mmol/L Anion Gap (3-11) BUN (6-23) mg/dl Creatinine (0.6-1.2) mg/dl Est Cr Clr Drug Dosing ml/min Est GFR ( Amer) ml/min Est GFR (Non-Af Amer) ml/min BUN/Creatinine Ratio (10-20) Glucose (70-99(Fasting)) mg/dl Calcium (8.5-10.1) mg/dl Total Bilirubin (0.2-1.0) mg/dl AST (13-39) U/L ALT (7-52) U/L Alkaline Phosphatase (34-104) U/L Total Protein (6.0-8.3) gm/dl Albumin (3.4-5.0) gm/dl Globulin (2.5-4.0) gm/dl Albumin/Globulin Ratio (0.9-2) Lipase (11-82) U/L Urine Color Urine Appearance (Clear) Urine pH (4.5-7.5) Ur Specific [place] (1.000-1.030) Urine Protein (Negative) Urine Glucose (UA) (Negative) Urine Ketones (Negative) Urine Blood (Negative) Urine Nitrite (Negative) Urine Bilirubin (Negative) Urine Urobilinogen (Negative) Ur Leukocyte Esterase (Negative) SARS-CoV-2, RNA, NAAT NEGATIVE (NEGATIVE) Administered Medications Morphine Sulfate (Morphine Sulfate 4 Mg/Ml 1 Ml Carp\Vial) 4 mg IV Q30M PRN PRN Reason: Pain Stop: 06/21/22 11:59 Last Admin: 06/07/22 18:23 Dose: 4 mg Documented By: Admin: 06/07/22 15:39 Dose: 4 mg Documented By: Admin: 06/07/22 14:45 Dose: 4 mg Documented By: Admin: 06/07/22 13:24 Dose: 4 mg Documented By: SHREE Discontinued Medications Hydromorphone HCl (Hydromorphone Inj 0.5 Mg/0.5 Ml Syr) 0.5 mg IV NOW STA Stop: 06/07/22 16:37 Last Admin: 06/07/22 16:39 Dose: 0.5 mg Documented By: SHREE Sodium Chloride (Nss 1000ml) 1,000 mls @ 999 mls/hr IV .Q1H1M ONE Stop: 06/07/22 13:00 Last Infusion: 06/07/22 13:20 Dose: 0 mls/hr Documented By: Admin: 06/07/22 12:12 Dose: 999 mls/hr Documented By: MANUEL Acetaminophen (Ofirmev) 1,000 mg in 100 mls @ 400 mls/hr IV NOW STA Stop: 06/07/22 12:15 Last Infusion: 06/07/22 12:41 Dose: 0 mls/hr Documented By: Admin: 06/07/22 12:12 Dose: 400 mls/hr Documented By: MANUEL Ioversol (Optiray 350 100ml) 88 ml IV ONCE ONE Stop: 06/07/22 13:13 Last Admin: 06/07/22 13:12 Dose: 88 ml Documented By: CHIARA Morphine Sulfate (Morphine Sulfate 4 Mg/Ml 1 Ml Carp\Vial) 4 mg IV NOW STA Stop: 06/07/22 12:01 Last Admin: 06/07/22 12:12 Dose: 4 mg Documented By: MANUEL Ondansetron HCl (Ondansetron Inj 2 Mg/Ml 2 Ml Vial) 4 mg IV NOW STA Stop: 06/07/22 12:01 Last Admin: 06/07/22 12:12 Dose: 4 mg Documented By: MANUEL Ondansetron HCl (Ondansetron Inj 2 Mg/Ml 2 Ml Vial) 4 mg IV NOW STA Stop: 06/07/22 18:20 Last Admin: 06/07/22 18:23 Dose: 4 mg Documented By: PONCE Imaging Data Radiologist's Impression: Abdomen/Pelvis CT 06/07/22 12:[address] WITH IV CONTRAST CT DOSE: 713.21 mGy.cm HISTORY: Right lower quadrant abdominal pain. TECHNIQUE: Multiaxial CT images of the abdomen and pelvis were performed following the use of intravenous contrast. A dose lowering technique was utilized adhering to the principles of ALARA. COMPARISON STUDY: Abdomen and pelvis CT 05/11/2022. FINDINGS: There are new trace bilateral pleural effusions. Punctate calcified granuloma within the right lower lobe. Linear scarlike density seen within the lingula. Groundglass densities within the lungs posteriorly favor dependent change. No pneumoperitoneum. No pneumatosis. No suspicious lytic or blastic osseous lesions. Stable left breast nodule. Small fat-containing bilateral inguinal hernias again noted. Intra and extra hepatic bile duct dilatation is similar to the prior study. This may be due to the patient's postcholecystectomy state. No hepatic or splenic masses. The pancreas and adrenal glands unremarkable. There is mild bilateral perinephric edema. No hydronephrosis. The kidneys enhance normally. The main portal vein is patent. No retroperitoneal lymphadenopathy. Mild calcified plaque within the normal caliber abdominal a [place]. No pelvic free fluid. Mild bladder wall thickening, unchanged. The uterus and left adnexa are unremarkable. Redemonstration of the 8 cm septated cystic lesion within the right ovary/adnexa. Interval resolution of the acute sigmoid diverticulitis. No evidence for acute diverticulitis at this time. No bowel wall thickening or obstruction. Normal appendix. Fluid-filled nondilated large and small bowel. This could be seen in the setting of a diarrheal illness/gastroenteritis. IMPRESSION: 1. Interval resolution of the acute sigmoid diverticulitis. No evidence for acute diverticulitis at this time. 2. Mild bladder wall thickening, unchanged. This may be chronic. Recommend correlation with urinalysis. 3. Redemonstration of the 8 cm septated cystic lesion within the right ovary/adnexa. An ovarian neoplasm remains the diagnosis of exclusion. Gynecologic consultation recommended. 4. Stable bile duct dilatation. 5. Trace bilateral pleural effusions which are new from the prior study. 6. Fluid-filled nondilated large and small bowel. This could be seen in the setting of a diarrheal illness/gastroenteritis. 7. Additional findings as described above. ACT 112: Negative or not required by law. Electronically signed by: Mil Cunningham M.D. 06/07/2022 1:34 PM Pelvis Ultrasound 06/07/22 12:00 PELVIC ULTRASOUND, TRANSABDOMINAL AND TRANSVAGINAL HISTORY: Follow-up right ovarian lesion, pain COMPARISON: Pelvic ultrasound 04/06/2022. FINDINGS: Uterus: 8.5 x 2.2 x 4.4 cm. No uterine masses. Endometrial stripe: 3 mm in thickness. Right ovary: There is again noted a primarily cystic 8.5 x 5.2 x 5.9 cm right adnexal/ovarian lesion. This contains a few thickened septations and a small amount of peripheral color flow. This is similar to the prior study. Given the size and appearance of this lesion, an ovarian neoplasm is the diagnosis of exclusion. Therefore, gynecologic consultation recommended. Left ovary: Obscured by overlying bowel gas. Miscellaneous:No pelvic free fluid. IMPRESSION: There is again noted a primarily cystic 8.5 x 5.2 x 5.9 cm right adnexal/ovarian lesion. This contains a few thickened septations and a small amount of peripheral color flow. This is similar to the prior study. Given the size and appearance of this lesion, an ovarian neoplasm is the diagnosis of exclusion. Therefore, gynecologic consultation recommended. ACT 112: Positive. There are findings on this exam that require communication between the performing entity and the patient following Patient Test Result Information Act ([place] Act 112) guidelines. Electronically signed by: Mil Cunningham M.D. 06/07/2022 4:00 PM Discharge Plan Visit Data Chief Complaint: Abdominal Pain Stated Complaint: ABD PAIN, NAUSEA, MASS ON OVARY ED Provider: Davie Maguire Discharge Problem: RLQ abdominal pain, Vomiting, Right ovarian cyst, Failure of outpatient treatment Patient Disposition: Admitted As Inpatient Condition: Fair Forms Stand Alone [facility]: [facility] Pres[facility] Prescriptions: No Action hydrocodone-acetaminophen 5-325 mg tablet 1 - 2 tab PO Q6H PRN (Reason: pain) Qty: 10 0RF amoxicillin-pot clavulanate 875-125 mg tablet 1 tab PO BID Qty: 18 0RF promethazine 25 mg tablet 25 mg PO Q6H PRN (Reason: nausea and vomiting) Qty: 10 0RF diltiazem HCl 240 mg capsule,extended release 24hr 240 mg PO DAILY fluoxetine 40 mg capsule 40 mg PO DAILY hydrochlorothiazide 25 mg tablet 25 mg PO DAILY losartan 100 mg tablet 100 mg PO DAILY rosuvastatin 20 mg tablet 20 mg PO DAILY alprazolam 0.25 mg Tablet 0.25 mg PO QID PRN (Reason: Anxiety) potassium chloride [Klor-Con 10] 10 mEq Tablet Extended Release 20 meq PO QAM omeprazole 20 mg Capsule,Delayed Release(Dr/Ec) 20 mg PO BID loratadine 10 mg Tablet 10 mg PO DAILY albuterol sulfate [ProAir HFA] 90 mcg/actuation Hfa Aerosol Inhaler 2 puff INHALATION QID PRN (Reason: Shortness Of Breath Or Wheezing) aspirin 81 mg Tablet,Delayed Release (Dr/Ec) 81 mg PO DAILY naproxen sodium [Aleve] 220 mg Tablet 440 mg PO Q4H PRN (Reason: CRAMPING) Rx Instructions: TWO TABS EVERY 4 HOURS FIRST 2-3 DAYS OF MENSES multivitamin Tablet 1 tab PO DAILY folic acid 1 mg Tablet 1 mg PO QAM Qty: 30 0RF thiamine HCl (vitamin B1) 100 mg Tablet 100 mg PO QAM Qty: 30 0RF Referrals Referrals: Ranjan Howard MD [Primary Care Provider] -
[2022-06-07 12:44] LABS: Basophils # (auto) 0.06 K/uL (0-0.2); Basophils % (auto) 0.8 %; Eosinophils # (auto) 0.19 K/uL (0-0.50); Eosinophils % (auto) 2.5 %; Hematocrit (blood only) 37.7 % (37.0-47.0); Hemoglobin 13.2 g/dl (12.0-16.0); Immature Granulocytes # (auto) 0.03 K/uL (0.01-0.20); Immature Granulocytes % (auto) 0.4 %; Lymphocytes # (auto) 2.21 K/uL (1.2-3.4); Lymphocytes % (auto) 29.6 %; Mean Corpuscular Hemoglobin 32.9 pg (25.0-34.0); Mean Platelet Volume 9.5 fL (9.4-12.4); Monocytes # (auto) 0.51 K/uL (0.11-0.59); Monocytes % (auto) 6.8 %; Neutrophils # (auto) 4.46 K/uL (1.40-6.50); Neutrophils % (auto) 59.9 %; Platelet Count 351 K/uL (130-400); RDW Coefficient of Variation 11.3 % (11.5-14.5); Red Blood Count 4.01 M/uL (4.20-5.40); White Blood Count 7.46 K/ul (4.8-10.8)
[2022-06-07 13:00] LABS: Albumin Globulin Ratio 1.5 (0.9-2); Albumin Level 4.3 gm/dl (3.4-5.0); BUN Creatinine Ratio 9.6 (10-20); Bilirubin,Total 0.4 mg/dl (0.2-1.0); Calcium 9.4 mg/dl (8.5-10.1); Creatinine Clr Calc Pharmacy 71.1 ml/min; Est GFR (African American) 88.8 ml/min; Est GFR (Non-African American) 76.6 ml/min; Globulin 2.8 gm/dl (2.5-4.0); Potassium 3.7 mmol/L (3.5-5.1); Total Protein 7.1 gm/dl (6.0-8.3)
[2022-06-07 13:07] LABS: Appearance Urine Clear (Clear); Bilirubin Urine Negative (Negative); Blood Urine Negative (Negative); Color Urine Yellow; Glucose Urine UA Negative (Negative); Ketones Urine Negative (Negative); Leukocyte Esterase Urine Negative (Negative); Nitrite Urine Negative (Negative); Protein Urine Negative (Negative); Specific Gravity Urine 1.007 (1.000-1.030); Urobilinogen Urine Negative (Negative); pH Urine 5.5 (4.5-7.5)
[2022-06-07] MEDS ORDERED: OPTIRAY 350 100ml IV ONE (13:12)
[2022-06-07] MEDS: MoRPHine SULFATE 4 MG/ML 1 ML CARP\\VIAL IV PRN ×6 (13:24→21:48)
--- NOTE | 2022-06-07 13:35 | CT Scan Report ---
ABDOMEN AND PELVIS CT WITH IV CONTRAST CT DOSE: 713.21 mGy.cm HISTORY: Right lower quadrant abdominal pain. TECHNIQUE: Multiaxial CT images of the abdomen and pelvis were performed following the use of intrave nous contrast. A dose lowering technique was utilized adhering to the principles of ALARA. COMPARISON STUDY: Abdomen and pelvis CT 05/11/2022. FINDINGS: There are new trace bilateral pleural effusions. Punctate calcified granuloma within the ri ght lower lobe. Linear scarlike density seen within the lingula. Groundglass densities within the vanessa gs posteriorly favor dependent change. No pneumoperitoneum. No pneumatosis. No suspicious lytic or bl astic osseous lesions. Stable left breast nodule. Small fat-containing bilateral inguinal hernias aga in noted. Intra and extra hepatic bile duct dilatation is similar to the prior study. This may be due to the patient's postcholecystectomy state. No hepatic or splenic masses. The pancreas and adrenal g lands unremarkable. There is mild bilateral perinephric edema. No hydronephrosis. The kidneys enhance normally. The main portal vein is patent. No retroperitoneal lymphadenopathy. Mild calcified plaque within the normal caliber abdominal aorta. No pelvic free fluid. Mild bladder wall thickening, unchan ged. The uterus and left adnexa are unremarkable. Redemonstration of the 8 cm septated cystic lesion within the right ovary/adnexa. Interval resolution of the acute sigmoid diverticulitis. No evidence f or acute diverticulitis at this time. No bowel wall thickening or obstruction. Normal appendix. Fluid -filled nondilated large and small bowel. This could be seen in the setting of a diarrheal illness/ga stroenteritis. IMPRESSION: 1. Interval resolution of the acute sigmoid diverticulitis. No evidence for acute diverticulitis at t his time. 2. Mild bladder wall thickening, unchanged. This may be chronic. Recommend correlation with urinalysi s. 3. Redemonstration of the 8 cm septated cystic lesion within the right ovary/adnexa. An ovarian neopl asm remains the diagnosis of exclusion. Gynecologic consultation recommended. 4. Stable bile duct dilatation. 5. Trace bilateral pleural effusions which are new from the prior study. 6. Fluid-filled nondilated large and small bowel. This could be seen in the setting of a diarrheal il lness/gastroenteritis. 7. Additional findings as described above. ACT 112: Negative or not required by law. Electronically signed by: Mil Cunningham M.D. 06/07/2022 1:34 PM
--- NOTE | 2022-06-07 16:01 | Ultrasound Report ---
PELVIC ULTRASOUND, TRANSABDOMINAL AND TRANSVAGINAL HISTORY: Follow-up right ovarian lesion, pain COMPARISON: Pelvic ultrasound 04/06/2022. FINDINGS: Uterus: 8.5 x 2.2 x 4.4 cm. No uterine masses. Endometrial stripe: 3 mm in thickness. Right ovary: There is again noted a primarily cystic 8.5 x 5.2 x 5.9 cm right adnexal/ovarian lesion. This contains a few thickened septations and a small amount of peripheral color flow. This is simila r to the prior study. Given the size and appearance of this lesion, an ovarian neoplasm is the diagno sis of exclusion. Therefore, gynecologic consultation recommended. Left ovary: Obscured by overlying bowel gas. Miscellaneous:No pelvic free fluid. IMPRESSION: There is again noted a primarily cystic 8.5 x 5.2 x 5.9 cm right adnexal/ovarian lesion. This contain s a few thickened septations and a small amount of peripheral color flow. This is similar to the prio r study. Given the size and appearance of this lesion, an ovarian neoplasm is the diagnosis of exclus ion. Therefore, gynecologic consultation recommended. ACT 112: Positive. There are findings on this exam that require communication between the performing entity and the patient following Patient Test Result Information Act ([place] Act 112) guidelines. Electronically signed by: Mil Cunningham M.D. 06/07/2022 4:00 PM
[2022-06-07] MEDS ORDERED: HYDROmorphone INJ 0.5 MG/0.5 ML SYR IV STA (16:36)
--- NOTE | 2022-06-07 20:53 | Anesthesiology Consultation ---
Date of Service June 07, 2022 Assessment & Plan Chart Review Chart Review: order entry initiated History Surgery Operation Date: 06/07/22 20:15 Proposed Procedures p Laparoscopy vs open laparotomy - Shawnee Marx s Bilateral Oophorectomy - Shawnee Marx Height/Weight Height: 5 ft 2 in Weight: 81 kg Allergies Allergy/AdvReac Type Severity Reaction Status Date / Time SAMIR Inhibitors AdvReac Intermediate Cough Verified 06/07/22 20:21 erythromycin base AdvReac Intermediate Gastrointestinal Verified 06/07/22 20:21 Upset ketorolac AdvReac Intermediate Gastrointestinal Verified 06/07/22 20:21 Upset lisinopril AdvReac Mild Cough Verified 06/07/22 20:21 Medications Home Medications Medication Instructions Recorded Confirmed Last Taken alprazolam 0.25 mg tablet 0.25 mg PO TID PRN Anxiety 04/05/22 06/07/22 Unknown aspirin 81 mg tablet,delayed 81 mg PO DAILY 04/05/22 06/07/22 06/07/22 release diltiazem HCl 240 mg 240 mg PO DAILY 04/05/22 06/07/22 06/07/22 capsule,extended release 24 hr fluoxetine 40 mg capsule 40 mg PO DAILY 04/05/22 06/07/22 06/07/22 hydrochlorothiazide 25 mg tablet 25 mg PO DAILY 04/05/22 06/07/22 06/07/22 loratadine 10 mg tablet 10 mg PO QAM 04/05/22 06/07/22 06/07/22 losartan 100 mg tablet 100 mg PO DAILY 04/05/22 06/07/22 06/07/22 multivitamin 1 tab PO DAILY 04/05/22 06/07/22 06/07/22 naproxen sodium 220 mg tablet 440 mg PO Q4H PRN CRAMPING 04/05/22 06/07/22 Unknown (Aleve) omeprazole 20 mg capsule,delayed 20 mg PO BID 04/05/22 06/07/22 06/07/22 release potassium chloride 10 mEq 20 meq PO QAM 04/05/22 06/07/22 06/07/22 tablet,extended release (Klor-Con) rosuvastatin 20 mg tablet 20 mg PO DAILY 04/05/22 06/07/22 06/07/22 folic acid 1 mg tablet 1 mg PO QAM #30 tabs 04/08/22 06/07/22 06/07/22 thiamine HCl (vitamin B1) 100 mg 100 mg PO QAM #30 tabs 04/08/22 06/07/22 06/07/22 tablet hydrocodone 5 mg-acetaminophen 325 1 - 2 tab PO Q6 PRN pain 06/07/22 06/07/22 06/07/22 mg tablet ondansetron 4 mg disintegrating 4 mg PO Q8 PRN Nausea 06/07/22 06/07/22 Unknown tablet Active Medications Generic Name Dose Route Start Last Admin Trade Name Freq PRN Reason Stop Dose Admin Morphine Sulfate 4 mg 06/07/22 12:00 06/07/22 20:33 Morphine Sulfate 4 Mg/Ml 1 Ml Carp\Vial IV 06/21/22 11:59 4 mg Q30M PRN Administration Pain Past Medical History Medical History Acute pancreatitis HTN (hypertension) Ovarian cystic mass Social History Smoking Status: Former smoker Hx Alcohol Use: Yes Alcohol type: wine alcohol intake frequency: 0-2 drinks per day Hx Substance Use: No substance use type: does not use Physical Exam Vital Signs Last Vital Signs Temp 98.2 F 06/07/22 11:42 Pulse 52 L 06/07/22 18:45 Resp 15 06/07/22 18:45 BP 135/73 06/07/22 11:42 Pulse Ox 91 06/07/22 18:45 O2 Del Method Room Air 06/07/22 11:42 Testing Laboratory Results 06/07/22 12:10 06/07/22 12:10 Urine Color Yellow 06/07/22 12:00 Urine Appearance Clear (Clear) 06/07/22 12:00 Urine pH 5.5 (4.5-7.5) 06/07/22 12:00 Ur Specific [place] 1.007 (1.000-1.030) 06/07/22 12:00 Urine Protein Negative (Negative) 06/07/22 12:00 Urine Glucose (UA) Negative (Negative) 06/07/22 12:00 Urine Ketones Negative (Negative) 06/07/22 12:00 Urine Nitrite Negative (Negative) 06/07/22 12:00 Ur Leukocyte Esterase Negative (Negative) 06/07/22 12:00 Electrocardiogram Date: 04/05/22 Normal sinus rhythm, rate 73 bpm Normal ECG When compared with ECG of 13-DEC-2013 03:34, No significant change was found Confirmed by Javier Macdonald ([id number]) on 04/06/2022 9:09:15 AM Chest X-Ray Date: 04/05/22 Findings: + NAD
[2022-06-07] MEDS ORDERED: ACETAMINOPHEN 1,000 MG/100 ML VIAL IV PRN (21:05)
--- NOTE | 2022-06-07 21:17 | History & Physical Report ---
Date of Service June 07, 2022 Assessment & Plan (1) Ovarian cystic mass: (2) Acute pancreatitis: (3) RLQ abdominal pain: (4) Failure of outpatient treatment: Plan: Will consent for Operative laparoscopy possible laparotomy, bilateral oophorectomy, lysis of adhesions History of Present Illness Chief Complaint: pelvic pain Primary Care Provider: Ranjan Howard MD 61 F P2002 complaining of acute onset of right sided pain associated with nausea and vomitting. Her pain has been present for several months but has now started to be severe. Almost daily vomiting. Has history of pancreatitis. Has history of endometriosis with multiple laparoscopies. x2. Allergies Allergy/AdvReac Type Severity Reaction Status Date / Time SAMRI Inhibitors AdvReac Intermediate Cough Verified 06/07/22 20:21 erythromycin base AdvReac Intermediate Gastrointestinal Verified 06/07/22 20:21 Upset ketorolac AdvReac Intermediate Gastrointestinal Verified 06/07/22 20:21 Upset lisinopril AdvReac Mild Cough Verified 06/07/22 20:21 Home Medications Medication Instructions Recorded Confirmed Type alprazolam 0.25 mg tablet 0.25 mg PO TID PRN Anxiety 04/05/22 06/07/22 History aspirin 81 mg tablet,delayed 81 mg PO DAILY 04/05/22 06/07/22 History release diltiazem HCl 240 mg 240 mg PO DAILY 04/05/22 06/07/22 History capsule,extended release 24 hr fluoxetine 40 mg capsule 40 mg PO DAILY 04/05/22 06/07/22 History hydrochlorothiazide 25 mg tablet 25 mg PO DAILY 04/05/22 06/07/22 History loratadine 10 mg tablet 10 mg PO QAM 04/05/22 06/07/22 History losartan 100 mg tablet 100 mg PO DAILY 04/05/22 06/07/22 History multivitamin 1 tab PO DAILY 04/05/22 06/07/22 History naproxen sodium 220 mg tablet 440 mg PO Q4H PRN CRAMPING 04/05/22 06/07/22 History (Aleve) omeprazole 20 mg capsule,delayed 20 mg PO BID 04/05/22 06/07/22 History release potassium chloride 10 mEq 20 meq PO QAM 04/05/22 06/07/22 History tablet,extended release (Klor-Con) rosuvastatin 20 mg tablet 20 mg PO DAILY 04/05/22 06/07/22 History folic acid 1 mg tablet 1 mg PO QAM #30 tabs 04/08/22 06/07/22 Rx thiamine HCl (vitamin B1) 100 mg 100 mg PO QAM #30 tabs 04/08/22 06/07/22 Rx tablet hydrocodone 5 mg-acetaminophen 325 1 - 2 tab PO Q6 PRN pain 06/07/22 06/07/22 History mg tablet ondansetron 4 mg disintegrating 4 mg PO Q8 PRN Nausea 06/07/22 06/07/22 History tablet Patient History Medical History Acute pancreatitis HTN (hypertension) Ovarian cystic mass Social History Smoking Status: Former smoker Second Hand Exposure: No; Hx Alcohol Use: Yes Alcohol type: wine Hx Substance Use: No Preferred Language: Nigerian Communication Ability: Effective Reproduction Artist Required: No Beliefs That Will Affect Care: None Current Living Situation: Spouse Feels Safe at Home: Yes Assistive Devices: None 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 Review of Systems All systems reviewed & are unremarkable except as noted in HPI & below Physical Exam Constitutional: WD/WN, vitals as above Eyes: PERRL, conjunctivae normal, anicteric sclerae Respiratory: normal respiratory effort, lungs clear to auscultation Cardiovascular: RRR, no murmur, no edema Gastrointestinal (Abdomen): Percussion/Palpation: + abdomen tender no guarding or rebound but is tender with deep palpation Musculoskeletal: Extremities: extremities normal to inspection Skin: no rashes, warm and dry Neurologic: patellar DTR's 2+ bilat, sensation intact Psychiatric: A+Ox3, euthymic affect Results & Data Vital Signs (Past 12 Hours) Vital Signs Temp Pulse Resp BP Pulse Ox O2 Del Method 06/07/22 18:45 52 L 15 91 06/07/22 18:30 50 L 15 95 06/07/22 18:15 53 L 13 96 06/07/22 18:00 49 L 15 94 06/07/22 17:45 71 06/07/22 17:30 50 L 16 93 06/07/22 17:15 51 L 16 89 L 06/07/22 17:00 50 L 15 94 06/07/22 16:45 55 L 13 95 06/07/22 16:30 57 L 20 06/07/22 16:15 52 L 15 98 06/07/22 16:00 52 L 14 94 06/07/22 15:45 56 L 14 93 06/07/22 15:37 71 15 06/07/22 15:15 51 L 15 98 06/07/22 15:00 55 L 17 98 06/07/22 14:45 57 L 14 98 06/07/22 14:30 49 L 14 98 06/07/22 14:15 57 L 20 96 06/07/22 14:00 53 L 14 98 06/07/22 13:45 55 L 12 96 06/07/22 13:32 61 12 95 06/07/22 13:19 68 18 95 06/07/22 13:00 52 L 12 96 06/07/22 16:14 52 L 06/07/22 12:50 54 L 16 96 06/07/22 12:40 55 L 12 99 06/07/22 12:33 56 L 15 98 06/07/22 12:34 52 L 06/07/22 11:42 36.8 C 72 18 135/73 97 Room Air Laboratory Results 06/07/22 06/07/22 06/07/22 12:00 12:10 12:10 WBC 7.46 RBC 4.01 L Hgb 13.2 Hct 37.7 MCV 94.0 MCH 32.9 MCHC 35.0 RDW Std Deviation 39.0 RDW Coeff of Tristan 11.3 L Plt Count 351 MPV 9.5 Immature Gran % (Auto) 0.4 Neut % (Auto) 59.9 Lymph % (Auto) 29.6 Ashley % (Auto) 6.8 Eos % (Auto) 2.5 Baso % (Auto) 0.8 Neut # (Auto) 4.46 Lymph # (Auto) 2.21 Ashley # (Auto) 0.51 Eos # (Auto) 0.19 Baso # (Auto) 0.06 Immature Gran # (Auto) 0.03 Sodium 132 L Potassium 3.7 Chloride 95 L Carbon Dioxide 26 Anion Gap 11 BUN 8 Creatinine 0.83 Est Cr Clr Drug Dosing 71.1 Est GFR ( Amer) 88.8 Est GFR (Non-Af Amer) 76.6 BUN/Creatinine Ratio 9.6 L Glucose 104 H Calcium 9.4 Total Bilirubin 0.4 AST 24 ALT 25 Alkaline Phosphatase 92 Total Protein 7.1 Albumin 4.3 Globulin 2.8 Albumin/Globulin Ratio 1.5 Lipase 34 Urine Color Yellow Urine Appearance Clear Urine pH 5.5 Ur Specific [place] 1.007 Urine Protein Negative Urine Glucose (UA) Negative Urine Ketones Negative Urine Blood Negative Urine Nitrite Negative Urine Bilirubin Negative Urine Urobilinogen Negative Ur Leukocyte Esterase Negative SARS-CoV-2, RNA, NAAT 06/07/22 14:00 WBC RBC Hgb Hct MCV MCH MCHC RDW Std Deviation RDW Coeff of Tristan Plt Count MPV Immature Gran % (Auto) Neut % (Auto) Lymph % (Auto) Ashley % (Auto) Eos % (Auto) Baso % (Auto) Neut # (Auto) Lymph # (Auto) Ashley # (Auto) Eos # (Auto) Baso # (Auto) Immature Gran # (Auto) Sodium Potassium Chloride Carbon Dioxide Anion Gap BUN Creatinine Est Cr Clr Drug Dosing Est GFR ( Amer) Est GFR (Non-Af Amer) BUN/Creatinine Ratio Glucose Calcium Total Bilirubin AST ALT Alkaline Phosphatase Total Protein Albumin Globulin Albumin/Globulin Ratio Lipase Urine Color Urine Appearance Urine pH Ur Specific [place] Urine Protein Urine Glucose (UA) Urine Ketones Urine Blood Urine Nitrite Urine Bilirubin Urine Urobilinogen Ur Leukocyte Esterase SARS-CoV-2, RNA, NAAT NEGATIVE Diagnostic Findings CT and ultrasound demonstrate cystic mass on right 8-9 cm with septations Code Status & VTE Plan VTE Prophylaxis Plan VTE Prophylaxis will be ordered: No
[2022-06-07] MEDS ORDERED: LACTATED RINGER'S 1,000 ML IV SCH (23:03)
[2022-06-07] MEDS ORDERED: ONDANSETRON INJ 2 MG/ML 2 ML VIAL IV PRN (23:03)
[2022-06-08] MEDS: MoRPHine SULFATE 4 MG/ML 1 ML CARP\\VIAL IV PRN (05:30)
[2022-06-08] MEDS ORDERED: SODIUM CHLORIDE 0.9% 1000ML 1,000 ML IV SCH (06:00)
[2022-06-08] MEDS ORDERED: PROPOFOL IV EMULSION 10 MG/ML 20 ML VIAL IV ONE (07:25)
[2022-06-08] MEDS ORDERED: ROCURONIUM BROMIDE 10 MG/ML 5 ML VIAL IV ONE ×4 (07:25→09:22)
[2022-06-08] MEDS ORDERED: DEXAMETHASONE SOD INJ 4 MG/ML VIAL ONE (07:25)
[2022-06-08] MEDS ORDERED: GLYCOPYRROLATE 0.2 MG/ML VIAL ONE (07:25)
[2022-06-08] MEDS ORDERED: fentaNYL citrate 100 MCG/2 ML VIAL ONE (07:25)
[2022-06-08] MEDS ORDERED: ONDANSETRON INJ 2 MG/ML 2 ML VIAL ONE (07:25)
--- NOTE | 2022-06-08 07:25 | History & Physical Bridge Note ---
Date of Service June 08, 2022 History & Physical Bridge Note I have examined the patient, reviewed the History & Physical and in the interval since the performance of the History & Physical I have noted the following changes of clinical significance: no changes noted
[2022-06-08] MEDS ORDERED: SUGAMMADEX SODIUM 200 MG/2 ML VIAL IV ONE (07:26)
[2022-06-08] MEDS ORDERED: ONDANSETRON INJ 2 MG/ML 2 ML VIAL IV PRN (07:32)
[2022-06-08] MEDS ORDERED: ePHEDrine sulfate 50 MG/ML AMP IV PRN (07:32)
[2022-06-08] MEDS ORDERED: ATROPINE SULFATE 0.1 MG/ML 10ML SYR IV PRN (07:32)
[2022-06-08] MEDS ORDERED: ceFAZolin 2000MG 2,000 MG/15 ML SYR IV SCH (07:45)
[2022-06-08] MEDS ORDERED: BUPIVACAINE 0.5 % 5 MG/1 ML MPF 30ML VIAL ONE (08:37)
[2022-06-08] MEDS ORDERED: TISSEEL FIBRIN SEALANT 10ML TOP ONE (09:58)
[2022-06-08] MEDS ORDERED: KETOROLAC 30 MG/ML VIAL IV PRN (10:17)
[2022-06-08] MEDS ORDERED: IBUPROFEN 600 MG TAB PO PRN (10:17)
[2022-06-08] MEDS ORDERED: oxyCODONE/ACETAMINOPHEN 5mg/325mg TAB PO PRN (10:17)
[2022-06-08] MEDS ORDERED: ACETAMINOPHEN 325 MG TAB PO PRN (10:17)
[2022-06-08] MEDS: fentaNYL citrate 100 MCG/2 ML VIAL IV PRN ×2 (10:20→10:25)
--- NOTE | 2022-06-08 10:24 | Post Operative Brief Note ---
Immediate Post Op Note v1 Date of Surgery June 08, 2022 Pre & Post Diagnosis Operation Date: 06/08/22 08:20 <No data on this case meets the specified criteria> I identified the patient and participated in the time-out.: No Procedure Operation Date: 06/08/22 08:20 <No data on this case meets the specified criteria> Surgeon Shawnee Marx Aeronautical Inspector None Estimated Blood Loss 1 Findings Consistent with Post-Op Diagnosis Drains [place] Catheter
--- NOTE | 2022-06-08 10:28 | Discharge Summary ---
Date of Service June 08, 2022 Admission HPI Per Admitting Provider 61 F P2002 complaining of acute onset of right sided pain associated with nausea and vomitting. Her pain has been present for several months but has now started to be severe. Almost daily vomiting. Has history of pancreatitis. Has history of endometriosis with multiple laparoscopies. x2. Admission Exam (Per Admitting) Constitutional WD/WN, vitals as above Respiratory normal respiratory effort, lungs clear to auscultation Cardiovascular RRR, no murmur, no edema Gastrointestinal (Abdomen) Inspection/Auscultation: abdomen normal to inspection and normal bowel sounds Percussion/Palpation: + abdomen tender Discharge Data Consultations 06/07/22 17:10 Consult Obstetrics Stat Procedures Performed Operation Date: 06/08/22 08:20 <No data on this case meets the specified criteria> s/p Diagnostic laparoscopy and laparoscopic bilateral salpingo-oophorectomy Hospital Course (1) Ovarian cystic mass: s/p Diagnostic laparoscopy and laparoscopic bilateral salpingo-oophorectomy (2) Acute pancreatitis: Stable. Follow up PCP (3) RLQ abdominal pain: s/p Diagnostic laparoscopy and laparoscopic bilateral salpingo-oophorectomy (4) Failure of outpatient treatment: Will consent for Operative laparoscopy possible laparotomy, bilateral oophorectomy, lysis of adhesions
--- NOTE | 2022-06-08 10:40 | Anesthesiology Progress Note ---
Date of Service June 08, 2022 Anesthesia Post Procedure Vital Signs Vital Signs: Temp Pulse Pulse Pulse Resp BP BP 06/08/22 10:35 72 17 116/67 06/08/22 10:25 81 17 136/66 06/08/22 10:15 96.8 F L 88 18 154/74 H 06/08/22 05:00 58 L 18 143/75 H 06/08/22 04:00 98.6 F 55 L 18 127/77 06/07/22 23:00 97.5 F L 55 L 18 125/75 06/07/22 18:45 52 L 15 06/07/22 18:30 50 L 15 06/07/22 18:15 53 L 13 06/07/22 18:00 49 L 15 06/07/22 17:45 71 06/07/22 17:30 50 L 16 06/07/22 17:15 51 L 16 06/07/22 17:00 50 L 15 06/07/22 16:45 55 L 13 06/07/22 16:30 57 L 20 06/07/22 16:15 52 L 15 06/07/22 16:00 52 L 14 06/07/22 15:45 56 L 14 06/07/22 15:37 71 15 06/07/22 15:15 51 L 15 06/07/22 15:00 55 L 17 06/07/22 14:45 57 L 14 06/07/22 14:30 49 L 14 06/07/22 14:15 57 L 20 06/07/22 14:00 53 L 14 06/07/22 13:45 55 L 12 06/07/22 13:32 61 12 06/07/22 13:19 68 18 06/07/22 13:00 52 L 12 06/07/22 16:14 52 L 06/07/22 12:50 54 L 16 06/07/22 12:40 55 L 12 06/07/22 12:33 56 L 15 06/07/22 12:34 52 L 06/07/22 11:42 98.2 F 72 18 135/73 Pulse Ox O2 Del Method O2 Flow Rate 06/08/22 10:35 96 Room Air 06/08/22 10:25 100 Oxymask 5 06/08/22 10:15 100 Oxymask 5 06/08/22 05:00 97 Nasal Cannula 1 06/08/22 04:00 97 Room Air 1 06/07/22 23:00 96 Nasal Cannula 1 06/07/22 18:45 91 06/07/22 18:30 95 06/07/22 18:15 96 06/07/22 18:00 94 06/07/22 17:45 06/07/22 17:30 93 06/07/22 17:15 89 L 06/07/22 17:00 94 06/07/22 16:45 95 06/07/22 16:30 06/07/22 16:15 98 06/07/22 16:00 94 06/07/22 15:45 93 06/07/22 15:37 06/07/22 15:15 98 06/07/22 15:00 98 06/07/22 14:45 98 06/07/22 14:30 98 06/07/22 14:15 96 06/07/22 14:00 98 06/07/22 13:45 96 06/07/22 13:32 95 06/07/22 13:19 95 06/07/22 13:00 96 06/07/22 16:14 06/07/22 12:50 96 06/07/22 12:40 99 06/07/22 12:33 98 06/07/22 12:34 06/07/22 11:42 97 Room Air Pain Intensity Right Abdomen: Pain Intensity: 6 Transfer of Care Handoff Completed per policy Notes Mental Status: alert / awake / arousable and participated in evaluation Patient Amnestic to Procedure: Yes Nausea / Vomiting: adequately controlled Pain: adequately controlled Airway Patency, RR, SpO2: stable & adequate BP & HR: stable & adequate Hydration State: stable & adequate Anesthetic Complications: no major complications apparent and Pt Satisfied with anesthetic care
--- NOTE | 2022-06-08 10:45 | Operative Report ---
Post Operative Report Pre & Post Diagnosis Operation Date: 06/08/22 08:20 <No data on this case meets the specified criteria> I identified the patient and participated in the time-out.: No Procedure Operation Date: 06/08/22 08:20 <No data on this case meets the specified criteria> s/p Diagnostic laparoscopy and laparoscopic bilateral salpingo-oophorectomy Surgeon Shawnee Marx Provisioning Analyst None Estimated Blood Loss 1 Findings See Below 1. 7 cm anteverted uterus 2. Normal appearing left fallopian tube and ovary 3. Right ovary enlarged to approximately 10 cm with a simple appearing cyst 4. Normal appearing right fallopian tube 5. Anterior cul-de-sac without lesions or adhesions 6. Posterior cul-de-sac with filmy adhesions 7. Normal appearing liver edge 8. Appendix not visualized Fluids See Anesthesia Report Specimens Left fallopian tube and ovary, Right fallopian tube and ovary with cyst, right ovarian cyst fluid Drains Monaco catheter removed at the end of the procedure. Urine: 400 ml Complications none Indications 61 yo with severe pelvic pain and an enlarged right ovarian cyst (approximately 10 cm) desiring surgical management. Description of Procedure Under GA in the dorsal lithotomy position, the patient was prepped and draped in the usual sterile fashion. Beginning at the vagina, a monaco catheter was inserted under sterile conditions and left in situ for the remainder of the case. A weighted speculum was then placed in the vagina and with the help of a right angle retractor the cervix was visualized and grasped anteriorly with a single tooth tenaculum.The uterus was sounded to7 cm with a uterine sound.The cervical os was dilated up. An HUMI uterine manipulator was inserted. The weighted speculum was then removed. Attention was then turned to the abdomen. 0.5% marcaine solution was used for infiltration of all port sites. Beginning in the subumbilical area, the skin was first infiltrated with ~ 2 cc of themarcaine solution, then a5mm incision was made through the skin with a #11 blade. Direct entry with the 5 mm trocar, sleeve, and laparoscope was made into the peritoneal cavity.The opening pressure was <8 mmHg. The peritoneal cavity was insufflated with CO2 gas to a maximum pressure of 20 mmHg. Examination of the peritoneal cavity revealed no signs of injury from entry and the above notedanatomical structures.The patient was then placed in steep Trendelenburg and two more 5 mm trocars were placed, one on the LLQ and one on the LUQ, in the standard technique, taking care to avoid the epigastric vessels. All trocars were placed under direct visualization with no inadvertent damage to underlying structures. The uterus was upheld from below and revealed a normal uterus, normal left fallopian tube and ovary, and an enlarged right ovary. . Beginning on the left side, the Infundibular ligament was identified by lifting the tube towards the anterior wall of the abdomen. The ureter was confirmed along the pelvic side wall and peristalsis was noted. The SAMIR Harmonic device was then used to clamp and ligate the IP ligament in three sequential bites with ligation. The IP was then cut mid-distance, again being sure to be clear of the ureter. The mesosalpinx was then sequentially, clamped, ligated, and cut using the SAMIR Harmonic working alongside the length of the tube and towards the cornua. Once the level of the cornua was reached the tube and ovary was ligated and cut and placed in the anterior cul-de-sac.The same process was then repeated on the right side. Hemostasis was achieved. The LLQ incision was increased to accommodate a 12 mm trocar. An endo-catch bag was then placed into the pelvis and the left fallopian tube and ovary were removed. A second endo-catch bag was then placed into the pelvis and the right ovary with cyst and fallopian tube was inserted into the bag and brought up to the LLQ port site. The endo-catch bag was open and the right ovarian cyst fluid was removed through a syringe and sent for pathological evaluation. This also allowed for decompression of the cyst which was removed within the endo-catch bag and all specimens were sent for pathological evaluation. Tisseal was then placed along the adnexal regions. Hemostasis was again appreciated. The LLQ trocar was removed. The fascia of the LLQ incision site was closed with 0 Vicryl on a Anthony Angy. The subcutaneous layer was closed with 2-0 Vicryl in an interrupted fashion. All other ports were removed under direct visualization and hemostasis noted. All the incision sites were then closed with 4-0 monocryl sutures in a subcuticular fashion and dermabond. The uterine manipulator and monaco catheter were removed without incident. The procedure ended. At the end of the procedure, all sponges, instruments, and sharps were counted and correct. Estimated blood loss was 1 ml. The patient was taken to recovery in stable condition. I attest to the content of the Intraoperative Record and any orders documented therein. Any exceptions are noted below.
== END 2022-06-08 16:12 | disposition home or self-care (01) | DRG 742 ==
LOC: ED 11:40 → 4E1 21:04